=== PATIENT | female | born 1940 | race Caucasian/White ===

== ENCOUNTER 2017-09-04 11:49 | Day surgery (SDC) | payer OTHER, BC ==
[2017-08-27 14:13] VITALS: BMI 40.0
--- NOTE | 2017-08-27 14:38 | PAT Medication Instructions ---
Service Date Aug 27, 2017. Current Home Medication List Aspirin (Aspir-81), 1 TAB PO QPM Benazepril (Lotensin), 20 MG PO QAM Clonazepam (Clonazepam), 1 MG PO HS Duloxetine Hcl (Cymbalta), 60 MG PO QAM Ferrous Sulfate (Ferrous Sulfate), 1 TAB PO QAM Fexofenadine Hcl (Jaycee), 180 MG PO QAM Furosemide (Lasix), 20 MG PO QAM Glimepiride (Glimepiride), 0.5 MG PO HS Lansoprazole (Prevacid), 30 MG PO QAM Meloxicam (Mobic), 15 MG PO QAM Metformin Hcl (Glucophage), 1,000 MG PO BID Metoprolol Succinate (Toprol Xl), 25 MG PO QPM Pancrelipase (Lipase-Protease- (Creon), Unknown Dose PO QAM Potassium (Potassium), 1 TAB PO QAM Zolpidem Tartrate (Ambien Cr), 6.25 MG PO HS [Fiber ], Unknown Dose PO BID [Vitamin C And D ], Unknown Dose PO QAM Medication Instructions For Your Scheduled Surgery - Check with surgeon and prescribing physician for instructions: Aspirin (Aspir-81), 1 TAB PO QPM Meloxicam (Mobic), 15 MG PO QAM - Hold the following medications the morning of surgery: Benazepril (Lotensin), 20 MG PO QAM Ferrous Sulfate (Ferrous Sulfate), 1 TAB PO QAM Fexofenadine Hcl (Jaycee), 180 MG PO QAM Furosemide (Lasix), 20 MG PO QAM Glimepiride (Glimepiride), 0.5 MG PO HS Metformin Hcl (Glucophage), 1,000 MG PO BID Pancrelipase (Lipase-Protease- (Creon), Unknown Dose PO QAM Potassium (Potassium), 1 TAB PO QAM [Fiber ], Unknown Dose PO BID [Vitamin C And D ], Unknown Dose PO QAM - Take the following medications the morning of surgery with a sip of water: Lansoprazole (Prevacid), 30 MG PO QAM Duloxetine Hcl (Cymbalta), 60 MG PO QAM - Take the following medications as scheduled the night before surgery: [Fiber ], Unknown Dose PO BID Zolpidem Tartrate (Ambien Cr), 6.25 MG PO HS Metoprolol Succinate (Toprol Xl), 25 MG PO QPM Metformin Hcl (Glucophage), 1,000 MG PO BID Clonazepam (Clonazepam), 1 MG PO HS If you have any questions please call us at [phone] or [phone] or [phone]
--- NOTE | 2017-08-27 15:40 | DIAGNOSTIC IMAGING REPORT ---
CHEST 2 VIEWS ROUTINE CLINICAL HISTORY: 77 years-old Female presenting with preoperative assessment chest x-ray. TECHNIQUE: PA and lateral views of the chest were obtained. COMPARISON: 04/13/2016. FINDINGS: Atherosclerosis of the aortic arch. Cardiac silhouette normal in size. Lungs and pleural spaces clear. Degenerative changes of the thoracic spine. Partially visualized posterior lumbar fusion hardware. Cholecystectomy clips noted. IMPRESSION: 1. No acute cardiopulmonary disease. Electronically signed by: Harris Gill M.D. 08/27/2017 3:39 PM Dictated Date/Time: 08/27/2017 3:33 PM
[2017-08-27 15:55] LABS: BASO % 0.4 %; BASO ABS # 0.03 K/uL (0-0.2); EOS % 3.1 %; EOS ABS # 0.21 K/uL (0-0.5); HEMATOCRIT 44.3 % (37-47); HEMOGLOBIN 14.5 g/dL (12.0-16.0); IG# 0.02 K/uL (0.00-0.02); LYMPH % 28.5 %; LYMPH ABS # 1.94 K/uL (1.2-3.4); MEAN CORPUSCULAR HEMOGLOBIN 28.5 pg (25-34); MEAN CORPUSCULAR HGB CONC 32.7 g/dl (32-36); MEAN PLATELET VOLUME 10.4 fL (7.4-10.4); MONO % 6.9 %; MONO ABS # 0.47 K/uL (0.11-0.59); NEUT % 60.8 %; NEUT ABS # 4.14 K/uL (1.4-6.5); PLATELET COUNT 231 K/uL (130-400); RED CELL DISTRIBUTION WIDTH CV 14.3 % (11.5-14.5); RED CELL DISTRIBUTION WIDTH SD 45.4 fL (36.4-46.3); WHITE BLOOD COUNT 6.81 K/uL (4.8-10.8)
[2017-08-27 16:03] LABS: CALCIUM 9.2 mg/dl (8.5-10.1); CREATININE 1.11 mg/dl (0.60-1.20); POTASSIUM 4.6 mmol/L (3.5-5.1)
[2017-08-27 16:06] LABS: INR 0.9 (0.9-1.1); PTT PATIENT 25.5 SECONDS (21.0-31.0)
[2017-08-28 05:45] LABS: HEMOGLOBIN A1C 6.2 % (4.5-5.6)
[~2017-09-04] VITALS: Ht 160 cm; Wt 102.6 kg
--- NOTE | 2017-09-04 07:08 | History and Physical ---
History & Physical Date Sep 04, 2017. Chief Complaint Patient presents with bilateral thumb CMC DJD for left thumb CMC injection right thumb CMC interposition arthroplasty History of Present Illness The patient is a 77 year old female with complaints of complaints of bilateral thumb CMC joint pain for left thumb CMC injection right thumb CMC her physician arthroplasty Past Medical/Surgical History Medical Problems: (1) Coronary artery disease (2) Depression (3) Diabetes mellitus type 2 in obese (4) Dyslipidemia (5) GERD (gastroesophageal reflux disease) (6) HTN (hypertension) (7) Lumbar stenosis with neurogenic claudication Surgical Problems: (1) History of back surgery Additional History Hepatic Disease: No Endocrine Disorder: Yes Kidney Disease: No Hypertension: Yes Heart Disease: Yes Bleeding Tendencies: No Infectious Diseases: No Allergies Coded Allergies: Oxycodone (Verified Allergy, Unknown, ITCHINESS, 08/27/17) Hydromorphone (Verified Adverse Reaction, Severe, hallucinations, 08/27/17) Codeine (Verified Adverse Reaction, Intermediate, RASH, 08/27/17) ITCHING only occurs with tylenol with codeine Statins (Verified Adverse Reaction, Intermediate, myalgias, 08/27/17) Home Medications Scheduled Aspirin (Aspir-81), 1 TAB PO QPM Benazepril (Lotensin), 20 MG PO QAM Clonazepam (Clonazepam), 1 MG PO HS Duloxetine Hcl (Cymbalta), 60 MG PO QAM Ferrous Sulfate (Ferrous Sulfate), 1 TAB PO QAM Fexofenadine Hcl (Jaycee), 180 MG PO QAM Furosemide (Lasix), 20 MG PO QAM Glimepiride (Glimepiride), 0.5 MG PO HS Lansoprazole (Prevacid), 30 MG PO QAM Meloxicam (Mobic), 15 MG PO QAM Metformin Hcl (Glucophage), 1,000 MG PO BID Metoprolol Succinate (Toprol Xl), 25 MG PO QPM Pancrelipase (Lipase-Protease- (Creon), Unknown Dose PO QAM Potassium (Potassium), 1 TAB PO QAM Zolpidem Tartrate (Ambien Cr), 6.25 MG PO HS [Fiber ], Unknown Dose PO BID [Vitamin C And D ], Unknown Dose PO QAM Physical Examination Skin: warm/dry, no rash Eyes: normal inspection, EOMI, sclerae normal ENT: normal ENT inspection, pharynx normal Head: normocephalic, atraumatic Neck: supple, no adenopathy, trachea midline Respiratory/Chest: lungs clear, normal breath sounds, no respiratory distress Cardiovascular: regular rate, rhythm, no edema, no murmur Abdomen / GI: normal bowel sounds, non tender Back: normal inspection Extremities: + pertinent finding (bilateral thumb cmc djd) Diagnosis Patient presents with bilateral thumb CMC DJD presents for left thumb injection at CMC joint and for right thumb CMC interposition arthroplasty Plan of Treatment Patient presents with bilateral thumb CMC arthritis she's failed times a conservative management including physical therapy anti-inflammatories and splinting activity modification presents for left thumb CMC injection right thumb CMC her position arthroplasty
[~2017-09-04 11:49] MED LIST: ASPI-232 PO; BENA20TA14 PO; DULO60CA44 PO; FERR325T5 PO; FEXO1TAB46 PO; FIBER PO; FURO-85 PO; GLIM1TAB2 PO; KLN1X PO; LACTATED RINGER'S 1000ML 1,000 ML IV SCH; LANS30CA63 PO; MELO7.5T5 PO; METF1000 PO; METO-478 PO; PANC1CAP PO; POTA99TA PO; VITAMIN C AND D PO; ZOLP6.252 PO
[2017-09-04] MEDS ORDERED: MIDAZOLAM HCL 1 MG/ML 2ML VIAL ONE (12:03)
[2017-09-04] MEDS ORDERED: PROPOFOL IV EMULSION 10 MG/ML 20 ML VIAL IV ONE (12:03)
[2017-09-04] MEDS ORDERED: LIDOCAINE HCL 2% 2 ML VIAL (20MG/ML) ONE (12:03)
[2017-09-04] MEDS ORDERED: FENTANYL CITRATE INJ 50 MCG/1 ML 2 ML VIAL ONE (12:04)
--- NOTE | 2017-09-04 12:04 | History & Physical Bridge Note ---
H&P Re-Evaluation Bridge Note: I have examined the patient, reviewed the History & Physical and in the interval since the performance of the History & Physical I have noted the following changes of clinical significance: No changes noted
[2017-09-04 12:12] VITALS: BP 158/97; PULSE 76; TEMP 36.8; O2SAT 96; Ht 160 cm; Wt 102.6 kg
[2017-09-04] MEDS ORDERED: FENTANYL CITRATE INJ 50 MCG/1 ML 2 ML VIAL IV PRN (12:15)
[2017-09-04] MEDS ORDERED: ATROPINE SULFATE 0.1 MG/ML 5ML SYR IV PRN (12:15)
[2017-09-04] MEDS ORDERED: ONDANSETRON INJ 2 MG/ML 2 ML VIAL IV PRN (12:15)
[2017-09-04] MEDS ORDERED: EpHEDrine SULFATE INJ 50 MG/ML AMP IV PRN (12:15)
[2017-09-04] MEDS ORDERED: NURSING VERBAL MED ORDER ONE (12:30)
[2017-09-04] MEDS ORDERED: CEFAZOLIN SOD 2000MG/15 ML IV PUSH IV ONE ×2 (12:30→13:00)
[2017-09-04] MEDS ORDERED: BUPIVACAINE 0.5 % 5 MG/1 ML MPF 30ML VIAL ONE (12:48)
[2017-09-04] MEDS ORDERED: METHYLPREDNISOLONE ACETATE 80 MG/ML VIAL ONE (12:48)
[2017-09-04] MEDS ORDERED: ROPIVACAINE 0.5% 5 MG/ML 30 ML VIAL ONE (12:50)
[2017-09-04] MEDS ORDERED: ONDANSETRON INJ 2 MG/ML 2 ML VIAL ONE (13:26)
[2017-09-04] MEDS ORDERED: DEXAMETHASONE SOD INJ 4 MG/ML VIAL ONE (13:26)
[2017-09-04] MEDS ORDERED: HYDR-5688 PO (14:41)
--- NOTE | 2017-09-04 14:45 | Discharge Instructions ---
Discharge Instructions Date of Service Sep 04, 2017. Visit Reason for Visit: Bilateral Thumb Carpometacarpal Osteoarthritis Discharge Discharge Diagnosis / Problem: Bilateral Thumb Carpometacarpal Osteoarthritis Discharge Goals Goal(s): Decrease discomfort, Improve function, Increase independence Activity Recommendations Activity Limitations: per Instructions/Follow-up section Weightbearing Status: Right weightbearing (on right hand and wrist) Anesthesia . Post Anesthesia Instructions: If you have had General Anesthesia or IV Sedation: * Do not drive today. * Resume driving when surgeon permits. * Do not make important decisions or sign legal documents today. * Call surgeon for: 1. Temperature elevations greater than 101 degrees F. 2. Uncontrollable pain. 3. Excessive bleeding. 4. Persistent nausea and vomiting. 5. Medication intolerance (nausea, vomiting or rash). * For nausea and vomiting use only clear liquids such as: tea, soda, bouillon until nausea subsides, then gradually increase diet as tolerated. * If you have any concerns or questions, call your surgeon's office. If physician is unavailable and it is an emergency, call 911 or go to the nearest emergency room. . Instructions / Follow-Up Instructions / Follow-Up ACTIVITY RECOMMENDATIONS: * No weight on the right hand and wrist. SPECIAL CARE INSTRUCTIONS: * Your bandage should be left in place until seen in the office. * Some drainage onto the dressing may occur. This is normal. * If the bandage feels excessively tight, you may loosen the elastic bandage. Then call the physician's office for further instructions. * If possible, keep your hand elevated above the level of your heart for the first 2 post operative days. You may use a sling if necessary. * You should move your fingers regularly (50-100 motions per hour) unless otherwise instructed. SPECIAL PRECAUTIONS: * If you notice increased drainage, fever over 101 degrees F. or severe, unremitting pain, call your physician/office at . * You may have been prescribed pain medication. If you experience nausea and/or skin rash, discontinue this medication and contact our office for an alternative medication. FOLLOW UP VISIT: If appointment is not already scheduled: Please call [facility] to make a follow-up appointment 10 - 14 days after your surgery at . Diet Recommendations Recommended Home Diet: resume previous diet Procedures Procedures Performed: Left Thumb Carpometacarpal Joint Injection; Right Thumb Carpometacarpal Joint Arthroplasty Pending Studies Studies pending at discharge: no Medical Emergencies . Who to Call and When: Medical Emergencies: If at any time you feel your situation is an emergency, please call 911 immediately. . Non-Emergent Contact Non-Emergency issues call your: Surgeon Call Non-Emergent contact if: temperature is above 101.5, your pain is not controlled, your pain is worsening, wound has increased drainage, wound has increased redness . . "Provider Documentation" section prepared by Apollo Ashley. . [place] Drug Monitoring Program Search Results: patient reviewed within database, no issues identified
--- NOTE | 2017-09-04 14:50 | [facility] Post Operative Brief Note ---
Immediate Operative Summary Operative Date Sep 04, 2017. Pre-Operative Diagnosis bilateral thumb carpometarpal osteoarthritis Post-Operative Diagnosis bilateral thumb carpometarpal osteoarthritis Procedure(s) Performed Left Thumb Carpometacarpal Joint Injection; Right Thumb Carpometacarpal Joint Arthroplasty Surgeon Dr. Brayan Zaidi Dog Groomer Surgeon(s) Apollo Ma Estimated Blood Loss 5cc Findings Consistent with Post-Op Diagnosis Specimens none per surgeon Drains None Anesthesia Type General Complication(s) none Disposition Disposition: Recovery Room / PACU
--- NOTE | 2017-09-04 14:53 | [facility] Operative Report ---
Operative Report Operative Date Sep 04, 2017. Pre-Operative Diagnosis bilateral thumb carpometarpal osteoarthritis Post-Operative Diagnosis bilateral thumb carpometarpal osteoarthritis Procedure(s) Performed Left Thumb Carpometacarpal Joint Injection; Right Thumb Carpometacarpal Joint Arthroplasty Surgeon Dr. Brayan Zaidi Head Filter Tank Tender Helper Surgeon(s) Apollo Ma Estimated Blood Loss 5cc Findings patient presents with bilateral CMC joint DJD left CMC thumb for injection Right thumb CMC position arthroplasty utilizing flexor carpi radialis tendon Specimens none per surgeon Drains None Anesthesia Type General Complication(s) none Disposition Recovery Room / PACU Indications Patient presents after failing attempts at conservative management including injections bracing anti-inflammatories relative rest activity modification Description of Procedure After initiation of general anesthesia the left thumb CMC was prepped and was injected with 80 mg Depo-Medrol 2 mL 1% plain lidocaine Band-Aid was placed socially the right upper extremity was prepped and draped in usual fashion for surgery this type utilizing a triradiate type incision centered over the trapezium of the thumb metacarpal secondary to subcutaneous tissue was percent to protect to visual radial nerve at all times as well as other normal structures dissection carried out of the capsule of the capsule was opened over the trapezium base of the thumb metacarpal was dissected sharply off of the underlying bone and was reflected for later repair trapezium was cut the 4 quadrants special attention paid to protect the flexor carpal radialis tendon deep aspect of the wound the trapezium was excised the volar aspect of the forearm was then identified and was to 2-1.5 severe incisions were made to harvest the flexor carpal radialis tendon into the base of the triradiate incision over the thumb metacarpal thorough irrigation debridement lavage was performed subsequently the base of the thumb metacarpal was drilled with an 8 mm drill bit the tendon having been prepared and socially passed through the suture to the deep portion of the wound utilizing 4-0 Tycron suture a 4-0 FiberWire was also used to reinforce repair of the tendon back to itself socially 80.62 K wire was placed from the base of the metacarpal into the base of the second metacarpal provides stability to the repair and cubital tension on the position was noted to be excellent alignment socially after thorough irrigation debridement lavage the capsule repaired utilizing 4-0 FiberWire in interrupted fashion subcutaneous was once again irrigated and skin was closed with 4-0 nylon a sterile compressive dressing was placed as well as a thumb spica splint patient was taken recovery in stable condition Apollo PITTMAN was necessary for prepping draping retraction wound closure of the deep fascia subcutaneous and skin was necessary for the case I attest to the content of the Intraoperative Record and any orders documented therein. Any exceptions are noted below.
--- NOTE | 2017-09-04 15:31 | Anesthesiology Progress Note ---
Anesthesia Post Op Note Date & Time Sep 04, 2017 at 15:30 Vital Signs Pain Intensity: 0 Vital Signs Past 12 Hours Date Time Temp Pulse Resp B/P (MAP) Pulse Ox O2 Delivery O2 Flow Rate FiO2 09/04/17 15:25 87 18 165/67 95 Room Air 09/04/17 15:15 89 15 163/76 97 Oxymask 10 09/04/17 15:05 90 28 148/74 97 Oxymask 09/04/17 14:57 36.5 106 20 166/89 97 Oxymask 15 09/04/17 12:12 36.8 76 20 158/97 (117) 96 Room Air Notes Mental Status: alert / awake / arousable, participated in evaluation Pt Amnestic to Procedure: Yes Nausea / Vomiting: adequately controlled Pain: adequately controlled Airway Patency, RR, SpO2: stable & adequate BP & HR: stable & adequate Hydration State: stable & adequate Anesthetic Complications: no major complications apparent
[2017-09-04 15:42] VITALS: BP 156/71; PULSE 70; TEMP 36.7; O2SAT 96
[2017-09-04 16:12] VITALS: BP 137/71; PULSE 70; TEMP 36.8; O2SAT 98
== END 2017-09-04 16:32 | disposition home or self-care (01) ==
LOC: C.ACU 11:49
PROVIDERS: ATTEND Orthopaedic Surgery
DX: M18.0 Bilateral primary osteoarthritis of first carpometacarpal joints (principal); F32.9 Major depressive disorder, single episode, unspecified; F41.9 Anxiety disorder, unspecified; I10 Essential (primary) hypertension; E11.9 Type 2 diabetes mellitus without complications; K21.9 Gastro-esophageal reflux disease without esophagitis; E78.5 Hyperlipidemia, unspecified; Z90.710 Acquired absence of both cervix and uterus; Z90.49 Acquired absence of other specified parts of digestive tract; Z98.890 Other specified postprocedural states; I25.10 Atherosclerotic heart disease of native coronary artery without angina pectoris; Z68.41 Body mass index [BMI] 40.0-44.9, adult; E66.01 Morbid (severe) obesity due to excess calories; Z79.899 Other long term (current) drug therapy; Z79.82 Long term (current) use of aspirin; Z83.3 Family history of diabetes mellitus; Z82.49 Family history of ischemic heart disease and other diseases of the circulatory system; Z80.3 Family history of malignant neoplasm of breast; Z82.0 Family history of epilepsy and other diseases of the nervous system; Z82.3 Family history of stroke

== ENCOUNTER 2018-09-04 10:06 | Inpatient (IN) ==
--- NOTE | 2018-08-21 10:45 | PAT Medication Instructions ---
Medication Instructions Date of Service August 21, 2018 Home Medications aspirin [Aspir-81] 81 mg PO QPM benazepril 20 mg PO QAM calcium polycarbophil [Fiber-Tabs] 2 tab PO BID clonazepam 1 mg PO QPM duloxetine 60 mg PO QAM fexofenadine 180 mg PO HS glimepiride 0.5 mg PO HS lansoprazole 30 mg PO QAM metformin 500 mg PO QAM metoprolol succinate 25 mg PO QPM DO NOT take the morning of surgery benazepril 20 mg PO QAM metformin 500 mg PO QAM calcium polycarbophil [Fiber-Tabs] 2 tab PO BID Take morning of surgery With a small sip of water, OTHERWISE NOTHING TO EAT OR DRINK AFTER MIDNIGHT: duloxetine 60 mg PO QAM lansoprazole 30 mg PO QAM Take evening before surgery aspirin [Aspir-81] 81 mg PO QPM calcium polycarbophil [Fiber-Tabs] 2 tab PO BID clonazepam 1 mg PO QPM fexofenadine 180 mg PO HS glimepiride 0.5 mg PO HS metoprolol succinate 25 mg PO QPM Other Notes If you have any questions please call us at [phone] or [phone] or [phone] or [phone]
--- NOTE | 2018-08-21 11:19 | Anesthesiology Consultation ---
Date of Service August 21, 2018 Assessment & Plan (1) Encounter for pre-operative examination: Plan: Cardiology clearance 08/07/2018: "The above referred patient is considered cleared for planned surgery and is considered low cardiac risk." CHECK BSG AM DOS Chart Review Chart Review: Acceptable Risk for Surgery and Patient seen in Pre Admission Testing Teaching & Discussion Instructed NPO after midnight before surgery, except medications with 15 cc of water. Medication instructions provided according to the PAT guidelines. History Surgery Operation Date: 09/04/18 12:25 Proposed Procedures p L2-L4 Removal of Hardware, L1-L2 Posterior Lumbar Decompression and Fusion, Possible L1-L4 Re-Instrumentation, Possible L1-L2 Interbody Cage - Orlando Jacobo, Height/Weight Height: 5 ft 3 in Weight: 97.4 kg Allergies Allergy/AdvReac Type Severity Reaction Status Date / Time oxycodone Allergy Unknown ITCHINESS Verified 08/15/18 10:43 hydromorphone AdvReac Severe hallucinati Verified 08/15/18 10:43 ons codeine AdvReac Intermediate RASH Verified 08/15/18 10:43 Agxyqqn-Kbs-Ass Reductase AdvReac Intermediate myalgias Verified 08/15/18 10:43 Inhibitor Medications Home Medications Medication Instructions Recorded Confirmed Last Taken aspirin [Aspir-81] 81 mg PO QPM 08/15/18 08/15/18 Unknown benazepril 20 mg PO QAM 08/15/18 08/15/18 Unknown calcium polycarbophil [Fiber-Tabs] 2 tab PO BID 08/15/18 08/15/18 Unknown clonazepam 1 mg PO QPM 08/15/18 08/15/18 Unknown duloxetine 60 mg PO QAM 08/15/18 08/15/18 Unknown fexofenadine 180 mg PO 08/15/18 08/15/18 Unknown glimepiride 0.5 mg PO HS 08/15/18 08/15/18 Unknown lansoprazole 30 mg PO QAM 08/15/18 08/15/18 Unknown metformin 500 mg PO QAM 08/15/18 08/15/18 Unknown metoprolol succinate 25 mg PO QPM 08/15/18 08/15/18 Unknown Past Medical History Medical History Anemia HX Anxiety Chronic back pain Depression Diabetes mellitus, type 2 Diverticular disease GERD (gastroesophageal reflux disease) Hiatal hernia Hyperlipidemia UNABLE TO TOLERATE STATINS-DIET MANAGED Hypertension Systolic heart failure EF 40% on echo 08/02/18 Past Family History Family History Daughter Family history of diabetes mellitus Past Surgical History Surgical History Fusion of spine LUMBAR H/O hand surgery RIGHT H/O laparoscopy OVARIES H/O shoulder surgery RIGHT History of bilateral tubal ligation History of cardiac cath X 3-NO STENTS NEEDED-LAST ONE 10 YRS AGO History of cholecystectomy History of hysterectomy TOTAL WITH APPENDECTOMY History of tonsillectomy Past Anesthesia History No Hx of Anesthesia Complications and No Family Hx of Anesthesia Complications MAC 3, ETT 7.0 [facility] CARPO-METACARPAL SURGERY 08/2017. NO ISSUES PER RECORD. History of PONV No Motion Sickness Screening History of Motion Sickness: No Social History Smoking Status: Never smoker Do You Dip or Chew Tobacco: No Hx Alcohol Use: Yes (RARELY) Alcohol type: wine alcohol intake frequency: other Hx Substance Use: No Exercise / Class Metabolic Activity III < 4 Walking/Shop/Light housework (no SOB or CP with ambulation. Does not do stairs.) Review of Systems Pt denies any recent chest pain, shortness of breath, palpitations, cough, fever or URI. Physical Exam Vital Signs BP: 131/78 P: 60bpm SPO2: 98% RA T: 97.5 F R: 16 ENMT Mouth: + dentures and + edentulous Thyromental Distance: > or= 3.5 Finger Breadths (3.5) Mallampati Class: I Neck normal visual inspection; neck extension not limited Respiratory normal respiratory effort Auscultation: lungs clear to auscultation bilaterally Cardiovascular Rate/Rhythm: regular rate and regular rhythm Heart Sounds: no murmur Vessels: no carotid bruit Extremities: no edema Testing Electrocardiogram Date: 04/02/18 Findings: + NSR @ (72) and + LBBB Chest X-Ray Date: 08/21/18 Findings: + NAD Echocardiogram Date: 08/02/18 EF: 40% Left ventricular size is normal with concentric LVH. EF of 40%, consistent with moderate left ventricular systolic dysfunction. Hypokinesis within the septal, anterior, inferior, and apical wall segments. The lateral wall segments show normal contractility. Normal left atrial size. Normal right atrial size and normal right ventricular size with normal right ventricular function. Grade 1 diastolic dysfunction. Normal LA pressure. Mild AR. The PA systolic pressure was unable to be estimated. The pericardium and aorta appear normal. Normal respiratory variation of the IVC. False tendon within the LV. Laboratory Results 08/21/18 11:40 08/21/18 11:40 Blood Type O Positive 08/21/18 11:40 Antibody Screen NEGATIVE 08/21/18 11:40 PT 9.6 Seconds (9.0-12.0) 08/21/18 11:40 INR 0.9 (0.9-1.1) 08/21/18 11:40 APTT 26.3 Seconds (21.0-31.0) 08/21/18 11:40 Hemoglobin A1c 6.2 % (4.5-5.6) H 08/21/18 11:40 Urine Color Yellow 08/21/18 Unknown Urine Appearance Clear (Clear) 08/21/18 Unknown Urine pH 7.5 (4.5-7.5) 08/21/18 Unknown Ur Specific [place] 1.018 (1.000-1.030) 08/21/18 Unknown Urine Protein Negative (Negative) 08/21/18 Unknown Urine Glucose (UA) Negative (Negative) 08/21/18 Unknown Urine Ketones Negative (Negative) 08/21/18 Unknown Urine Nitrite Negative (Negative) 08/21/18 Unknown Ur Leukocyte Esterase 3+ (Negative) H 08/21/18 Unknown Urine WBC (Auto) 10-30 /hpf (0-5) H 08/21/18 Unknown Urine RBC (Auto) 0-4 /hpf (0-4) 08/21/18 Unknown U Hyaline Cast (Auto) 0 /lpf (0-5) 08/21/18 Unknown U Epithel Cells (Auto) >30 /lpf (0-5) H 08/21/18 Unknown Urine Bacteria (Auto) Negative (Negative) 08/21/18 Unknown 08/21/18 Unknown Urine Culture - Preliminary Urine,Clean Catch Pin-point growth present, reincubating.
--- NOTE | 2018-08-21 12:43 | XRay Report ---
TWO VIEW CHEST CLINICAL HISTORY: Preoperative examination. FINDINGS: PA and lateral chest radiographs are compared to study dated 08/27/2017. The cardiomediastin al silhouette is unremarkable. There is mild bibasilar scarring/atelectasis. The lungs and pleural s paces are otherwise clear. There is no pneumothorax. The skeletal structures are osteopenic. The bony thorax appears intact. Degenerative change is noted in the thoracic spine. Fusion hardware is partia lly imaged in the upper lumbar spine. IMPRESSION: No active disease in the chest. Electronically signed by: Gabo Laguerre M.D. 08/21/2018 12:41 PM
[2018-08-21 13:19] LABS: Basophils # (auto) 0.03 K/uL (0-0.2); Basophils % (auto) 0.6 %; Eosinophils # (auto) 0.25 K/uL (0-0.5); Eosinophils % (auto) 4.7 %; Hematocrit (blood only) 41.2 % (37-47); Hemoglobin 12.8 g/dL (12.0-16.0); Immature Granulocytes # (auto) 0.01 K/uL (0.00-0.02); Immature Granulocytes % (auto) 0.2 %; Lymphocytes # (auto) 1.71 K/uL (1.2-3.4); Lymphocytes % (auto) 32.2 %; Mean Corpuscular Hgb Conc 31.1 g/dL (32-36); Mean Corpuscular Volume 89.8 fL (80-100); Mean Platelet Volume 11.2 fL (7.4-10.4); Monocytes # (auto) 0.45 K/uL (0.11-0.59); Monocytes % (auto) 8.5 %; Neutrophils # (auto) 2.86 K/uL (1.4-6.5); Neutrophils % (auto) 53.8 %; Platelet Count 219 K/uL (130-400); RDW Coefficient of Variation 13.9 % (11.5-14.5); RDW Standard Deviation 46.1 fL (36.4-46.3); Red Blood Count 4.59 M/uL (4.2-5.4); White Blood Count 5.31 K/uL (4.8-10.8)
[2018-08-21 13:26] LABS: Appearance Urine Clear (Clear); Bacteria Urine Automated Negative (Negative); Bilirubin Urine Negative (Negative); Cast Urine Automated 0 /lpf (0-5); Color Urine Yellow; Epithelial Cell Urine Auto >30 /lpf (0-5); Glucose Urine UA Negative (Negative); Ketones Urine Negative (Negative); Leukocyte Esterase Urine 3+ (Negative); Nitrite Urine Negative (Negative); Protein Urine Negative (Negative); Specific Gravity Urine 1.018 (1.000-1.030); Urobilinogen Urine Negative (Negative); pH Urine 7.5 (4.5-7.5)
[2018-08-21 13:42] LABS: BUN Creatinine Ratio 17.2 (10-20); Calcium 8.2 mg/dl (8.5-10.1); Creatinine Clr Calc Pharmacy 41.6 ml/min; Est GFR (Non-African American) 40.6; Potassium 4.4 mmol/L (3.5-5.1)
[2018-08-21 13:43] LABS: INR 0.9 (0.9-1.1); Partial Thromboplastin Time 26.3 Seconds (21.0-31.0); Prothrombin Time 9.6 Seconds (9.0-12.0)
[2018-08-21 14:25] LABS: Estimated Average Glucose 131 mg/dl
[~2018-09-04 10:06] MED LIST changes: +ACETAMINOPHEN 500 MG TAB PO SCH; -ASPI-232 PO; -BENA20TA14 PO; +CEFAZOLIN 2000MG 2,000 MG/15 ML SYR IV SCH; +CeleBREX 200 MG CAP PO SCH; -DULO60CA44 PO; -FERR325T5 PO; -FEXO1TAB46 PO; -FIBER PO; -FURO-85 PO; +GABAPENTIN 300 MG PO SCH; -GLIM1TAB2 PO; -KLN1X PO; -LACTATED RINGER'S 1000ML 1,000 ML IV SCH; -LANS30CA63 PO; +LR 15ML/HR IV SCH; -MELO7.5T5 PO; -METF1000 PO; -METO-478 PO; -PANC1CAP PO; -POTA99TA PO; -VITAMIN C AND D PO; -ZOLP6.252 PO
[2018-09-04] MEDS ORDERED: fentaNYL citrate 100 MCG/2 ML VIAL ONE ×6 (10:12→14:46)
[2018-09-04] MEDS ORDERED: MIDAZOLAM HCL 1 MG/ML 2ML VIAL ONE (10:12)
[2018-09-04] MEDS ORDERED: HYDROmorphone INJ 2 MG/ML SYR/VIAL ONE ×2 (10:12→14:07)
[2018-09-04] MEDS ORDERED: ROCURONIUM BROMIDE 10 MG/ML 5 ML VIAL ONE (10:13)
[2018-09-04] MEDS ORDERED: ONDANSETRON INJ 2 MG/ML 2 ML VIAL ONE ×2 (10:13→14:27)
[2018-09-04] MEDS ORDERED: DEXAMETHASONE SOD INJ 4 MG/ML VIAL ONE (10:13)
[2018-09-04] MEDS ORDERED: NEOSTIGMINE METHYLSULFATE 1 MG/ML 10ML VIAL ONE (10:13)
[2018-09-04] MEDS ORDERED: PROPOFOL IV EMULSION 10 MG/ML 20 ML VIAL IV ONE (10:13)
[2018-09-04] MEDS ORDERED: GLYCOPYRROLATE 0.2 MG/ML VIAL ONE (10:13)
[2018-09-04] MEDS ORDERED: LIDOCAINE HCL 2% 2 ML VIAL/AMP(20MG/ML) INFIL ONE (10:13)
--- NOTE | 2018-09-04 12:27 | History & Physical Bridge Note ---
Date of Service September 04, 2018 History & Physical Bridge Note I have examined the patient, reviewed the History & Physical and in the interval since the performance of the History & Physical I have noted the following changes of clinical significance: no changes noted
--- NOTE | 2018-09-04 12:29 | History & Physical Report ---
Date of Service September 04, 2018 Assessment & Plan (1) Lumbar stenosis with neurogenic claudication: Removal of hardware L2-L4 posterior lumbar decompression fusion L1-L2 possible re-instrumentation L1-L4 possible interbody cage at L1 to Present on Admission?: Yes History of Present Illness Chief Complaint: Back and leg pain Primary Care Provider: Ty Buck This is a 78-year-old female well-known to me that presents with chronic persistent back and leg pain. After failing extensive course of nonoperative care she is here for surgical intervention. Allergies Allergy/AdvReac Type Severity Reaction Status Date / Time oxycodone Allergy Unknown ITCHINESS Verified 09/04/18 10:48 hydromorphone AdvReac Severe hallucinati Verified 09/04/18 10:48 ons codeine AdvReac Intermediate RASH Verified 09/04/18 10:48 Vcfjxcd-Wuq-Laz Reductase AdvReac Intermediate myalgias Verified 09/04/18 10:48 Inhibitor Home Medications Home Medications Medication Instructions Recorded Confirmed Type aspirin [Aspir-81] 81 mg PO QPM 08/15/18 09/04/18 History benazepril 20 mg PO QAM 08/15/18 09/04/18 History calcium polycarbophil [Fiber-Tabs] 2 tab PO BID 08/15/18 09/04/18 History clonazepam 1 mg PO QPM 08/15/18 09/04/18 History duloxetine 60 mg PO QAM 08/15/18 09/04/18 History fexofenadine 180 mg PO HS 08/15/18 09/04/18 History glimepiride 0.5 mg PO HS 08/15/18 09/04/18 History lansoprazole 30 mg PO QAM 08/15/18 09/04/18 History metformin 500 mg PO QAM 08/15/18 09/04/18 History metoprolol succinate 25 mg PO QPM 08/15/18 09/04/18 History Lexapro 30 mg PO QAM 09/04/18 09/04/18 History Past Med/Surg History Medical History Anemia HX Anxiety Chronic back pain Depression Diabetes mellitus, type 2 Diverticular disease GERD (gastroesophageal reflux disease) Hiatal hernia Hyperlipidemia UNABLE TO TOLERATE STATINS-DIET MANAGED Hypertension Systolic heart failure EF 40% on echo 08/02/18 Surgical History Fusion of spine LUMBAR H/O hand surgery RIGHT H/O laparoscopy OVARIES H/O shoulder surgery RIGHT History of bilateral tubal ligation History of cardiac cath X 3-NO STENTS NEEDED-LAST ONE 10 YRS AGO History of cholecystectomy History of hysterectomy TOTAL WITH APPENDECTOMY History of tonsillectomy Family History Daughter Family history of diabetes mellitus Social History Current Living Situation: Spouse Other Information That Helps Us Care for You: No Feels Safe at Home: Yes Safety Concerns: Feels Safe At This Time Smoking Status: Never smoker Do You Dip or Chew Tobacco: No Hx Alcohol Use: Yes (RARELY) Alcohol type: wine Alcohol Intake Frequency: other Hx Substance Use: No Beliefs That Will Affect Care: None Preferred Language: Citizen Of [place] Communication Ability: Effective 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: No Physical Exam 2 Vital Signs (Past 24 Hours): Last Vital Signs Temp 36.8 C 09/04/18 11:14 Pulse 61 09/04/18 11:14 Resp 20 09/04/18 11:14 Pulse Ox 96 09/04/18 11:14 Results & Data Medications Administered Acetaminophen (Tylenol) 1,000 mg PO PREOP ALONSO Stop: 09/04/18 18:00 Last Admin: 09/04/18 10:56 Dose: 1,000 mg Celecoxib (Celebrex) 200 mg PO PREOP ALONSO Stop: 09/04/18 18:00 Last Admin: 09/04/18 10:55 Dose: 200 mg Gabapentin (Neurontin) 300 mg PO PREOP ALONSO Stop: 09/04/18 18:00 Last Admin: 09/04/18 10:56 Dose: 300 mg Lactated Ringer's (Lr) 1,000 mls @ 15 mls/hr IV .Q24H ALONSO Stop: 09/05/18 05:59 Last Admin: 09/04/18 10:56 Dose: 15 mls/hr
[2018-09-04] MEDS ORDERED: ONDANSETRON INJ 2 MG/ML 2 ML VIAL IV PRN ×2 (12:32→16:19)
[2018-09-04] MEDS ORDERED: fentaNYL citrate 100 MCG/2 ML VIAL IV PRN (12:32)
[2018-09-04] MEDS ORDERED: ePHEDrine sulfate 50 MG/ML AMP IV PRN (12:32)
[2018-09-04] MEDS ORDERED: ATROPINE SULFATE 0.1 MG/ML 10ML SYR IV PRN (12:32)
[2018-09-04] MEDS ORDERED: LARYING-O-JET KIT (LTA) ONE (12:45)
[2018-09-04] MEDS ORDERED: BACITRACIN INJ 50,000 UNIT VIAL ONE (12:46)
[2018-09-04] MEDS ORDERED: BUPIVACAINE/EPINEPHRINE 0.5% MPF 1:200,000 30 ML VIAL ONE (12:46)
[2018-09-04] MEDS ORDERED: ALBUTEROL HFA INHALER 8.5 GM ONE ×2 (13:58→14:27)
[2018-09-04] MEDS ORDERED: FLOSEAL HEMOSTATIC MATRIX 10ML TOP ONE (13:59)
[2018-09-04] MEDS ORDERED: KETOROLAC 30 MG/ML VIAL ONE (14:27)
--- NOTE | 2018-09-04 14:44 | Operative Report ---
Post Operative Report Pre & Post Diagnosis Operation Date: 09/04/18 11:55 Pre-Op Diagnosis: Neuroforaminal Stenosis of Lumbar Spine Post-Op Diagnosis: Neuroforaminal Stenosis of Lumbar Spine Procedure Operation Date: 09/04/18 11:55 Actual Procedures #1 removal of posterior segmental instrumentation L2-3 L3-4 L4-5 per #2 expiration of fusion L2-3 L3 445 per #3 lumbar decompression medial facetectomies foraminotomies L1-2. #4 posterior spinal fusion 1 2. #5 placement posterior his mentation L1-2. #6 interbody fusion L1-2. #7 placement of peek cage 8 x 26 mm L1-2. #8 placement of local autograft in the posterior gutters. #9 placement Feese: Sponge bone mass graft in the posterior gutters and ostial amp and interbody space. Surgeon Orlando Jacobo DO Air And Hydronic Balancing Technician Sunita Verduzco Estimated Blood Loss 100 Findings Consistent with Post-Op Diagnosis Specimens None Description of Procedure Patient was met with preoperatively case discussed all questions addressed. After informed consent obtained patient was taken to the operative suite underwent intubation and placed in a prone position the Jaime table on top of the Bill frame. All bony prominences well-padded eyes inspected to ensure no external pressure placed upon up at this point the lumbar spine was prepped and draped in normal sterile fashion. Sharp dissection with the assistance of Bovie cautery was performed down to and exposing the lamina and transverse processes of L1 and instrumentation at L2-L3-L4 bilaterally. Then proceeded to move the hardware bilaterally explore the fusion mass noting it to be intact. Then performed a complete laminectomy of L1 including bilateral medial facetectomies and foraminotomies addressing severe stenosis. Pedicle screws were then placed in L1 and L2 bilaterally with assistance of fluoroscopy the purposes cinthya placed. By way of a transforaminal approach on the right complete discectomy was performed and endplates curetted to subcortical bleeding bone and a 8 x 26 mm peek cage filled with osteo-amp bone graft tapped in position. The rods were then locked into final position bilaterally. The transverse processes of L1 and L2 burred to subcortical bleeding bone. Infuse collagen sponge mass graft local autograft placed in the posterior lateral gutters. 15 round MIRYAM drain inserted. Incision was then closed with 1 Vicryl in the fascia 2 -0 Vicryl subcutaneously for Monocryl for final skin closure. Steri-Strip sterile dressings placed. Patient will continue to PACU stable disc. Please note Sunita Verduzco present throughout the entire procedure involved in patient positioning complex portions of the surgery and final skin closure. I attest to the content of the Intraoperative Record and any orders documented therein. Any exceptions are noted below.
--- NOTE | 2018-09-04 14:46 | Fluoroscopy Report ---
FL lumbar spine 2-3V CLINICAL HISTORY: 78 years-old Female presenting with L2-L4 DECOMP/FUSION POSSIBLE L1. TECHNIQUE: 2 fluoroscopic image(s) recorded as part of an intraoperative procedure. COMPARISON: 04/14/2016. FINDINGS/IMPRESSION: Posterior bilateral transpedicular screw and cinthya fixation of 2 adjacent upper lumbar levels interbody spacers at this level and the 2 more inferior levels. Laminectomy defects at multiple contiguous lev els in the lumbar spine. Please see surgical report for further details. Fluoroscopy dosage (mGy): 14.65. Fluoroscopy time: 17.5 seconds. Number or time of fluoroscopic spot images: 0. Electronically signed by: Harris Gill M.D. 09/04/2018 2:45 PM
--- NOTE | 2018-09-04 15:59 | Anesthesiology Progress Note ---
Date of Service September 04, 2018 Anesthesia Post Procedure Vital Signs Vital Signs: Temp Pulse Pulse Pulse Resp BP BP 09/04/18 15:34 36.5 C 54 L 16 138/56 L 09/04/18 15:26 55 L 17 133/53 L 09/04/18 15:25 54 L 17 09/04/18 15:20 56 L 14 134/57 L 09/04/18 15:16 54 L 15 119/58 L 09/04/18 15:15 56 L 16 09/04/18 15:11 49 L 22 103/59 L 09/04/18 15:10 50 L 52 L 16 103/59 L 09/04/18 15:06 36.2 C L 51 L 51 L 16 128/54 L 128/54 L 09/04/18 15:05 09/04/18 11:14 36.8 C 61 20 Pulse Ox 09/04/18 15:34 100 09/04/18 15:26 100 09/04/18 15:25 100 09/04/18 15:20 100 09/04/18 15:16 100 09/04/18 15:15 100 09/04/18 15:11 98 09/04/18 15:10 99 09/04/18 15:06 96 09/04/18 15:05 97 09/04/18 11:14 96 Pain Intensity Right Groin: Pain Intensity: 0 Notes Mental Status: alert / awake / arousable and participated in evaluation Patient Amnestic to Procedure: Yes Nausea / Vomiting: adequately controlled Pain: adequately controlled Airway Patency, RR, SpO2: stable & adequate BP & HR: stable & adequate Hydration State: stable & adequate Anesthetic Complications: no major complications apparent and Pt Satisfied with anesthetic care
[2018-09-04] MEDS ORDERED: ALUMINUM/MAGNESIUM SUSP 30 ML UDC PO PRN (16:19)
[2018-09-04] MEDS ORDERED: ONDANSETRON 4 MG TAB PO PRN (16:19)
[2018-09-04] MEDS ORDERED: SOD PHOSPHATE/SOD BIPHOSPHATE ENEMA 132 ML BTL PR PRN (16:19)
[2018-09-04] MEDS ORDERED: MAGNESIUM HYDROXIDE SUSP 30 ML UDC PO PRN (16:19)
[2018-09-04] MEDS ORDERED: ACETAMINOPHEN 500 MG TAB PO PRN (16:19)
[2018-09-04] MEDS ORDERED: FAMOTIDINE 20 MG TAB PO PRN (16:19)
[2018-09-04] MEDS ORDERED: BISACODYL 10 MG SUPP PR PRN (16:19)
[2018-09-04] MEDS ORDERED: LORazepam 0.5 MG TAB PO PRN (16:19)
[2018-09-04] MEDS ORDERED: METOCLOPRAMIDE HCL INJ 5 MG/ML 2 ML VIAL IV PRN (16:19)
[2018-09-04] MEDS ORDERED: LORazepam 0.5 MG/1 ML VIAL IV PRN (16:19)
[2018-09-04] MEDS ORDERED: SODIUM CHLORIDE 0.9% 1000ML 1,000 ML IV SCH (16:19)
[2018-09-04] MEDS ORDERED: ACETAMINOPHEN 1,000 MG/100 ML VIAL IV PRN (16:19)
[2018-09-04] MEDS ORDERED: PROMETHAZINE HCL 12.5 MG in SODIUM CHLORIDE 0.9% 50 ML IV PRN (16:19)
[2018-09-04] MEDS ORDERED: DO NOT ADMINISTER FLU VACCINE PRN (16:19)
[2018-09-04] MEDS ORDERED: DO NOT ADMINISTER PNEUMOCOCCAL VACCINE PRN (16:19)
[2018-09-04] MEDS ORDERED: HYDROCODONE/ACETAMOPHEN 5/325MG TAB PO PRN (16:19)
[2018-09-04] MEDS: KETOROLAC TROMETHAMINE 15 MG/ML VIAL IV SCH ×2 (17:22→23:39)
[2018-09-04] MEDS ORDERED: GLUCAGON FOR INJ 1 MG VIAL SQ PRN (20:04)
[2018-09-04] MEDS ORDERED: GLUCOSE 40% GEL 15 GM TUBE PO PRN (20:04)
[2018-09-04] MEDS ORDERED: CARBOHYDRATES FOR HYPOGLYCEMIA PO PRN (20:04)
[2018-09-04] MEDS ORDERED: DEXTROSE 50% 50 ML SYRINGE IV PRN (20:04)
[2018-09-04] MEDS ORDERED: GLUCOSE 10 TABS/TUBE PO PRN (20:04)
--- NOTE | 2018-09-04 20:12 | Consultation ---
Date of Consultation September 04, 2018 Assessment & Plan (1) Status post lumbar surgery: Post op day# 0 S/P hardware removal L2-L4, lumbar decompression fusion L1- L2 by Dr Odalis DAVISON#[phone] Currently pt doing well post op, pain controlled -pain management per ortho -wound management per ortho -PT/OT as appropriate -DVT prophylaxis per ortho -incentive spirometry -monitor H&H for acute blood loss anemia (2) Diabetes mellitus, type II: A1c: 6.2 on 08/21/18 -monitor BSGs -hold metformin, glimepiride while in hospital -Novolog, Lantus sliding scale per protocol (3) Coronary artery disease: Cardiac cath 2009: 30% LAD stenosis Stress test 2015: no ischemia -No CP or SOB -resume aspirin when able per ortho -continue metoprolol (4) Chronic systolic heart failure: Hx echo 2017: EF: 35%, trace mitral and tricuspid insufficiency Does not appear fluid overloaded at this time -limit post op NSS to 1L running at 50ml/hr (5) HTN (hypertension): Stable -hold morning benazepril and reassess fluid status and bmp -continue metoprolol (6) Depression: Hx Depression and anxiety -continue lexapro, cymbalta (7) GERD (gastroesophageal reflux disease): -continue PPI Supervising Physician Co-Signing Physician Notes Patient seen and examined postop. States of back pain is well controlled, denies any numbness or tingling. Denies any chest pain, shortness of breath, dizziness. On Exam Patient is Obese, no apparent distress, lungs are clear to auscultation, S1-S2, back- surgical site in dressing, posterior drain, No pedal edema. Hyperglycemia noted post Op. Patient had Dexamethasone during surgery. Patient last A1C is 6.2. Hold Home meds for diabetes, Continue ISS, lantus while hospitalized. Post OP surgical site management/activity/DVT Px as per Primary Team. I personally reviewed the record. Patient is interviewed and examined at bedside. Patient's care is coordinated with Amy Cantu. Please refer to the documentation above for details of patient's presentation and for discussion of other issues. History of Present Illness Reason for Consultation: Post op medical management Attending Physician: Orlando Jacobo DO History of Present Illness Pt is 78 y/o F with PMH DM II, HTN, dyslipidemia, depression, GERD, Abraham's esophagus, CAD, angina seen in consultation for post op medical management s/p lumbar hardware removal and decompression fusion surgery today by Dr Jacobo. Pt reports doing well and pain is well controlled. Reports no paresthesias to extremities. Has not urinated yet post op. Eating and drinking without difficulty. Denies N/V/D, THAYER, dizziness, CP, SOB, orthopnea, palpitations, choking, abdominal pain. Out pt scanned records reviewed: Hx echo 2016: EF: 35%, trace mitral and tricuspid insufficiency Cardiac cath 2009: 30% LAD stenosis Stress test 2015: no ischemia Allergies Allergy/AdvReac Type Severity Reaction Status Date / Time oxycodone Allergy Unknown ITCHINESS Verified 09/04/18 10:48 hydromorphone AdvReac Severe hallucinati Verified 09/04/18 10:48 ons codeine AdvReac Intermediate RASH Verified 09/04/18 10:48 Eodffzm-Gor-Ebw Reductase AdvReac Intermediate myalgias Verified 09/04/18 10:48 Inhibitor Home Medications Home Medications Medication Instructions Recorded Confirmed Type aspirin [Aspir-81] 81 mg PO QPM 08/15/18 09/04/18 History benazepril 20 mg PO QAM 08/15/18 09/04/18 History calcium polycarbophil [Fiber-Tabs] 2 tab PO BID 08/15/18 09/04/18 History clonazepam 1 mg PO QPM 08/15/18 09/04/18 History duloxetine 60 mg PO QAM 08/15/18 09/04/18 History fexofenadine 180 mg PO HS 08/15/18 09/04/18 History glimepiride 0.5 mg PO HS 08/15/18 09/04/18 History lansoprazole 30 mg PO QAM 08/15/18 09/04/18 History metformin 500 mg PO QAM 08/15/18 09/04/18 History metoprolol succinate 25 mg PO QPM 08/15/18 09/04/18 History Lexapro 30 mg PO QAM 09/04/18 09/04/18 History escitalopram oxalate [Lexapro] 20 mg PO DAILY 09/04/18 09/04/18 History Patient History Medical History Chronic systolic heart failure (Chronic) Diabetes mellitus, type II (Chronic) Hiatal hernia (Chronic) Diverticular disease (Chronic) Chronic back pain (Chronic) Systolic heart failure (Chronic) EF 40% on echo 08/02/18 History of hysterectomy (Resolved) Abraham esophagus (Chronic) HTN (hypertension) (Chronic) Dyslipidemia (Chronic) Depression (Chronic) GERD (gastroesophageal reflux disease) (Chronic) Coronary artery disease (Chronic) Lumbar stenosis with neurogenic claudication (Chronic) Anxiety (Chronic) Diabetes mellitus, type 2 (Chronic) Anemia HX Surgical History History of bilateral tubal ligation (Resolved) H/O shoulder surgery (Resolved) RIGHT H/O hand surgery (Resolved) RIGHT H/O laparoscopy (Resolved) OVARIES Hx of tonsillectomy (Resolved) History of cholecystectomy (Resolved) History of back surgery (Chronic) History of cardiac cath (Resolved) X 3-NO STENTS NEEDED-LAST ONE 10 YRS AGO Fusion of spine LUMBAR Social History Current Living Situation: Spouse Other Information That Helps Us Care for You: No Feels Safe at Home: Yes Safety Concerns: Feels Safe At This Time Smoking Status: Never smoker Do You Dip or Chew Tobacco: No Hx Alcohol Use: No (RARELY) Hx Substance Use: No Beliefs That Will Affect Care: None Preferred Language: [place] Communication Ability: Effective Computer Operations Specialist Required: No Review of Systems As per HPI, other 10 systems reviewed and negative Physical Exam 2 Vital Signs (Past 24 Hours): Last Vital Signs Temp 37.1 C 09/04/18 19:45 Pulse 87 09/04/18 19:45 Resp 16 09/04/18 19:45 BP 132/79 09/04/18 19:45 Pulse Ox 99 09/04/18 19:45 Physical Exam: General: no distress, WDWN Head: normocephalic, atraumatic Eyes: PERRL, EOM's intact, conjunctiva non-injected, anicteric ENT: normal inspection external ears, nose, mucous membranes moist Neck: supple, trachea midline, non-tender Lungs: clear, no respiratory distress, no wheezing/rhonchi/rales CV: RRR, systolic murmur, no pretibial edema Abd: normal BS, soft, non-tender Ext: no cyanosis, bilateral pedal pulls and pushes intact bilaterally, distal pulses intact, sensation to light touch intact Neuro: A&O x 3, no focal deficits noted, normal affect Skin: warm, dry
[2018-09-04] MEDS: CEFAZOLIN 2000MG 2,000 MG/15 ML SYR IV SCH (20:23)
[2018-09-04] MEDS: FEXOFENADINE HCL 180 MG TAB PO SCH (20:33)
[2018-09-04] MEDS: ASPIRIN 81 MG ECTAB PO SCH (20:33)
[2018-09-04] MEDS: clonazePAM 1 MG TAB PO SCH (20:34)
[2018-09-04] MEDS: CALCIUM POLYCARBOPHIL 1 TAB PO SCH (20:34)
[2018-09-04] MEDS: METOPROLOL SUCC 25MG EXT REL TAB PO SCH (20:37)
[2018-09-04] MEDS ORDERED: INSULIN GLARGINE SOLOSTAR 100 UNITS/ML 3 ML PEN SC SCH (21:00)
[2018-09-04] MEDS: DOCUSATE SODIUM/SENNA 50/8.6MG TAB PO SCH (21:49)
[2018-09-04] MEDS: INSULIN ASPART 100 UNITS/ML 3 ML PEN SC SCH (21:51)
[2018-09-04] MEDS: INSULIN GLARGINE SOLOSTAR 100 UNITS/ML 3 ML PEN SC SCH (21:51)
[2018-09-05] MEDS: CEFAZOLIN 2000MG 2,000 MG/15 ML SYR IV SCH (03:42)
[2018-09-05] MEDS: KETOROLAC TROMETHAMINE 15 MG/ML VIAL IV SCH ×2 (06:15→12:50)
[2018-09-05] MEDS: POLYETHYLENE (MIRALAX) 17 GM PACK PO SCH ×4 (06:32→23:39)
[2018-09-05 07:52] LABS: Hematocrit (blood only) 34.8 % (37-47); Immature Granulocytes # (auto) 0.01 K/uL (0.00-0.02); Immature Granulocytes % (auto) 0.1 %; Lymphocytes # (auto) 0.78 K/uL (1.2-3.4); Lymphocytes % (auto) 7.7 %; Mean Corpuscular Hgb Conc 31.6 g/dL (32-36); Mean Corpuscular Volume 88.1 fL (80-100); Mean Platelet Volume 10.5 fL (7.4-10.4); Monocytes # (auto) 0.57 K/uL (0.11-0.59); Monocytes % (auto) 5.6 %; Neutrophils # (auto) 8.82 K/uL (1.4-6.5); Neutrophils % (auto) 86.6 %; Platelet Count 221 K/uL (130-400); RDW Coefficient of Variation 14.1 % (11.5-14.5); RDW Standard Deviation 45.7 fL (36.4-46.3); Red Blood Count 3.95 M/uL (4.2-5.4); White Blood Count 10.18 K/uL (4.8-10.8)
--- NOTE | 2018-09-05 07:58 | Anesthesiology Progress Note ---
Date of Service September 05, 2018 Anesthesia Post Procedure Vital Signs Vital Signs: Temp Pulse Pulse Pulse Pulse Resp BP 09/05/18 07:06 36.7 C 61 14 09/05/18 03:20 36.6 C 78 16 09/04/18 23:35 36.8 C 77 16 09/04/18 20:36 81 09/04/18 19:45 37.1 C 87 16 09/04/18 18:17 36.4 C L 90 16 09/04/18 17:17 36.4 C L 63 16 09/04/18 16:15 36.4 C L 56 L 16 09/04/18 16:01 51 L 13 125/62 09/04/18 16:00 51 L 15 09/04/18 15:56 51 L 16 145/63 H 09/04/18 15:55 50 L 12 09/04/18 15:51 52 L 15 150/59 H 09/04/18 15:50 52 L 12 09/04/18 15:46 52 L 13 155/57 H 09/04/18 15:45 51 L 14 09/04/18 15:41 51 L 13 141/63 H 09/04/18 15:40 53 L 11 L 09/04/18 15:36 53 L 16 157/64 H 09/04/18 15:35 54 L 15 09/04/18 15:34 36.5 C 54 L 16 09/04/18 15:31 56 L 13 138/56 L 09/04/18 15:30 61 13 09/04/18 15:27 53 L 14 09/04/18 15:26 55 L 17 133/53 L 09/04/18 15:25 54 L 17 09/04/18 15:20 56 L 14 134/57 L 09/04/18 15:16 54 L 15 119/58 L 09/04/18 15:15 56 L 16 09/04/18 15:11 49 L 22 103/59 L 09/04/18 15:10 50 L 52 L 16 09/04/18 15:06 36.2 C L 51 L 51 L 16 128/54 L 09/04/18 15:05 09/04/18 11:14 36.8 C 61 20 BP BP Pulse Ox 09/05/18 07:06 151/80 H 94 09/05/18 03:20 130/76 92 02/20/19 23:35 119/69 95 09/04/18 20:36 132/85 09/04/18 19:45 132/79 99 09/04/18 18:17 150/74 H 100 09/04/18 17:17 135/76 100 09/04/18 16:15 130/82 95 09/04/18 16:01 100 09/04/18 16:00 100 09/04/18 15:56 100 09/04/18 15:55 100 09/04/18 15:51 100 09/04/18 15:50 100 09/04/18 15:46 100 09/04/18 15:45 100 09/04/18 15:41 100 09/04/18 15:40 100 09/04/18 15:36 100 09/04/18 15:35 100 09/04/18 15:34 138/56 L 100 09/04/18 15:31 100 09/04/18 15:30 100 09/04/18 15:27 100 09/04/18 15:26 100 09/04/18 15:25 100 09/04/18 15:20 100 09/04/18 15:16 100 09/04/18 15:15 100 09/04/18 15:11 98 09/04/18 15:10 103/59 L 99 09/04/18 15:06 128/54 L 96 09/04/18 15:05 97 09/04/18 11:14 96 Pain Intensity Right Groin: Pain Intensity: 3 Notes Mental Status: alert / awake / arousable and participated in evaluation Patient Amnestic to Procedure: Yes Nausea / Vomiting: adequately controlled Pain: adequately controlled Airway Patency, RR, SpO2: stable & adequate BP & HR: stable & adequate Hydration State: stable & adequate Anesthetic Complications: no major complications apparent and Pt Satisfied with anesthetic care
[2018-09-05 08:23] LABS: BUN Creatinine Ratio 16.4 (10-20); Calcium 8.1 mg/dl (8.5-10.1); Creatinine Clr Calc Pharmacy 33.8 ml/min; Est GFR (African American) 36.7; Est GFR (Non-African American) 31.7
[2018-09-05] MEDS ORDERED: ENALAPRIL MALEATE 10 MG TAB PO SCH (09:00)
[2018-09-05] MEDS ORDERED: ESCITALOPRAM OXALATE 10 MG TAB PO SCH (09:00)
[2018-09-05] MEDS: DULOXETINE HCL 60 MG CAP PO SCH (09:07)
[2018-09-05] MEDS: LANSOPRAZOLE 30 MG SOLTAB PO SCH (09:07)
[2018-09-05] MEDS: ESCITALOPRAM OXALATE 10 MG TAB PO SCH (09:08)
[2018-09-05] MEDS: CALCIUM POLYCARBOPHIL 1 TAB PO SCH ×2 (09:31→21:12)
[2018-09-05] MEDS: INSULIN ASPART 100 UNITS/ML 3 ML PEN SC SCH ×4 (09:34→21:17)
[2018-09-05] MEDS: INSULIN GLARGINE SOLOSTAR 100 UNITS/ML 3 ML PEN SC SCH ×2 (09:35→21:18)
--- NOTE | 2018-09-05 10:04 | Orthopedic Progress Note ---
Date of Service September 05, 2018 Assessment & Plan (1) Lumbar stenosis with neurogenic claudication: This time we will continue physical therapy advance her bowel regimen and hopefully discharge home this weekend. Subjective Back pain is controlled leg symptoms markedly improved. Physical Exam 2 Vital Signs (Past 24 Hours): Last Vital Signs Temp 36.7 C 09/05/18 07:06 Pulse 61 09/05/18 07:06 Resp 14 09/05/18 07:06 BP 151/80 H 09/05/18 07:06 Pulse Ox 94 09/05/18 07:06 Physical Exam: On exam she is good strength testing appears comfortable.
[2018-09-05] MEDS ORDERED: GLIMEPIRIDE 2 MG TAB PO SCH (16:30)
[2018-09-05] MEDS: TRAMADOL HCL 50 MG TABLET PO PRN (19:00)
[2018-09-05] MEDS: METOPROLOL SUCC 25MG EXT REL TAB PO SCH (21:11)
[2018-09-05] MEDS: ASPIRIN 81 MG ECTAB PO SCH (21:12)
[2018-09-05] MEDS: FEXOFENADINE HCL 180 MG TAB PO SCH (21:13)
[2018-09-05] MEDS: clonazePAM 1 MG TAB PO SCH (21:16)
[2018-09-05] MEDS: DOCUSATE SODIUM/SENNA 50/8.6MG TAB PO SCH (21:16)
--- NOTE | 2018-09-05 21:28 | Hospitalist Progress Note ---
Date of Service September 05, 2018 Assessment & Plan (1) Status post lumbar surgery: Post op day# 1 S/P hardware removal L2-L4, lumbar decompression fusion L1- L2 by Dr Odalis DAVISON#100ml Currently pt doing well post op, pain controlled -pain management per ortho -wound management per ortho -PT/OT as appropriate -DVT prophylaxis per ortho -incentive spirometry -monitor H&H for acute blood loss anemia (2) KATHI (acute kidney injury): Acute elevation in creat . Uncertain of baseline, however, recent creat was 1.1 with a GFR of 48 one month ago. Mild elevation to 1.3 prior to surgery a couple of weeks ago, now at 1.57. ACEI held already and would cont to hold and trend creatinine in am on labwork. Would avoid NSAIDs but ASA ok once cleared by Ortho. (3) Diabetes mellitus, type II: A1c: 6.2 on 08/21/18 -monitor BSGs -hold metformin, glimepiride while in hospital -Novolog, Lantus sliding scale per protocol -glucose at goal (4) Coronary artery disease: stable, asymptomatic. cont metoprolol. resume ASA once cleared by ortho (5) Chronic systolic heart failure: chronic, compensated. Hx echo 2017: EF: 35%, trace mitral and tricuspid insufficiency. cont medication management with Toprol XL, holding ASA until ORtho clears her, holding ACEI in setting of KATHI above. Diurese PRN (6) HTN (hypertension): controlled, hold ACEI in setting of KATHI. (7) Depression: Hx Depression and anxiety -continue home regimen (8) DVT prophylaxis: SCDs per Ortho Full Code Dispo-likely to home in 1-2 days. [facility] Subjective pain controlled tolerating PO walking around halls asking when she can go home no BM yet. Physical Exam 2 Vital Signs (Past 24 Hours): Last Vital Signs Temp 36.7 C 09/05/18 14:37 Pulse 61 09/05/18 21:10 Resp 14 09/05/18 14:37 BP 130/76 09/05/18 21:10 Pulse Ox 99 09/05/18 14:37 CONSTITUTIONAL: WNWD, vitals as above, generally well-appearing ENT: MMM RESPIRATORY: clear to auscultation bilaterally, no crackles, rales or wheezes, normal respiratory effort CARDIOVASCULAR: regular rate and rhythm, S1 and 2 heard without murmurs, gallops or rubs, no JVD, no peripheral edema GASTROINTESTINAL: normal bowel sounds, soft, nontender, nondistended MUSCULOSKELETAL: strength 5/5 throughout, head is normocephalic and atraumatic SKIN: warm and dry, incision on back dressing intact NEUROLOGIC: extremities NVI PSYCHIATRIC: alert cooperative and oriented to person, place and time. Results & Data Laboratory Results Short CBC 09/05/18 Range/Units 07:30 WBC 10.18 (4.8-10.8) K/uL Hgb 11.0 L (12.0-16.0) g/dL Hct 34.8 L (37-47) % Plt Count 221 (130-400) K/uL BMP 09/05/18 07:30 Sodium 136 Potassium 5.0 Chloride 104 Carbon Dioxide 26 BUN 26 H Creatinine 1.57 H Glucose 163 H Calcium 8.1 L Medications Administered Current Inpatient Medications Acetaminophen (Tylenol) 1,000 mg PO Q8H PRN PRN Reason: MILD Pain Rating 1,2,3 Stop: 10/04/18 16:18 Last Admin: 09/05/18 06:36 Dose: 1,000 mg Hydrocodone Bitart/Acetaminophen ([place] 5/325) 1 - 2 tab PO Q4H PRN PRN Reason: Moderate-Severe Pain Stop: 09/18/18 16:18 Last Admin: 09/04/18 17:21 Dose: 2 tab Al Hydrox/Mg Hydrox/Simethicone (Maalox) 30 ml PO Q6H PRN PRN Reason: Dyspepsia Stop: 10/04/18 16:18 Aspirin (Ecotrin Ectab) 81 mg PO QPM [facility] Stop: 10/04/18 20:59 Last Admin: 09/05/18 21:12 Dose: 81 mg Bisacodyl (Dulcolax) 10 mg AL DAILY PRN PRN Reason: Constipation Stop: 10/04/18 16:18 Calcium Polycarbophil (Fibercon) 2 tab PO BID [facility] Stop: 10/04/18 20:59 Last Admin: 09/05/18 21:12 Dose: 2 tab Clonazepam (Klonopin) 1 mg PO QPM [facility] Stop: 10/04/18 20:59 Last Admin: 09/05/18 21:16 Dose: 1 mg Dextrose (Dextrose 50%) 25 - 50 ml IV UD PRN; Protocol PRN Reason: Hypoglycemia Protocol Stop: 10/04/18 20:03 Diphenhydramine HCl (Benadryl Capsule) 25 mg PO Q6H PRN PRN Reason: Allergic Rhinitis/Insomnia Stop: 10/04/18 16:18 Duloxetine HCl (Cymbalta) 60 mg PO QAM [facility] Stop: 10/05/18 08:59 Last Admin: 09/05/18 09:07 Dose: 60 mg Enalapril Maleate (Vasotec) 20 mg PO DAILY [facility] Stop: 10/05/18 08:59 Escitalopram Oxalate (Lexapro) 20 mg PO QAM ALONSO Stop: 10/05/18 08:59 Last Admin: 09/05/18 09:08 Dose: 20 mg Famotidine (Pepcid) 20 mg PO Q12H PRN PRN Reason: Dyspepsia Stop: 10/04/18 16:18 Fexofenadine HCl (Jaycee) 180 mg PO HS [facility] Stop: 10/04/18 20:59 Last Admin: 09/05/18 21:13 Dose: 180 mg Glucagon (Glucagen) 1 mg SQ UD PRN; Protocol PRN Reason: Hypoglycemia Protocol Stop: 10/04/18 20:03 Glucose (Dex4 Glucose) 4 - 8 tabs PO UD PRN; Protocol PRN Reason: Hypoglycemia Protocol Stop: 10/04/18 20:03 Glucose (Glucose 40%) 15 - 30 gm PO UD PRN; Protocol PRN Reason: Hypoglycemia Protocol Stop: 10/04/18 20:03 Hydroxyzine HCl (Vistaril) 25 mg PO Q8H PRN PRN Reason: Anxiety Stop: 10/04/18 16:18 Acetaminophen (Ofirmev) 1,000 mg in 100 mls @ 400 mls/hr IV Q8 PRN PRN Reason: MILD Pain Rating 1,2,3 Stop: 10/04/18 16:18 Lorazepam (Ativan) 0.5 mg in 1 mls @ 0.5 mls/min IV Q8H PRN PRN Reason: Sedation/Anxiety Stop: 10/04/18 16:18 Promethazine HCl 12.5 mg/ (Sodium Chloride) 50.5 mls @ 204 mls/hr IV Q6H PRN PRN Reason: Nausea &/or Vomiting Stop: 10/04/18 16:18 Insulin Aspart (Novolog Flexpen) 0 units SC ACHS [facility] Stop: 10/04/18 20:59 Last Admin: 09/05/18 21:17 Dose: Not Given Insulin Glargine (Lantus Solostar Pen) 0 units SC Q12 ALONSO; Protocol Stop: 10/04/18 20:59 Last Admin: 09/05/18 21:18 Dose: 5 units Lansoprazole (Prevacid) 30 mg PO QAM [facility] Stop: 10/05/18 08:59 Last Admin: 09/05/18 09:07 Dose: 30 mg Lorazepam (Ativan) 0.5 mg PO Q8H PRN PRN Reason: Sedation/Anxiety Stop: 10/04/18 16:18 Magnesium Hydroxide (Milk Of Magnesia) 30 ml PO DAILY PRN PRN Reason: Constipation Stop: 10/04/18 16:18 Metoclopramide HCl (Reglan) 10 mg IV Q6H PRN PRN Reason: Nausea &/or Vomiting Stop: 10/04/18 16:18 Metoprolol Succinate (Toprol Xl) 25 mg PO QPM [facility] Stop: 10/04/18 20:59 Last Admin: 09/05/18 21:11 Dose: 25 mg Miscellaneous (Pneumococcal Vacc, Do Not Administer) 1 ea N/A PRN PRN PRN Reason: Notification Stop: 10/04/18 16:18 Miscellaneous (Flu Vaccine, Do Not Administer) 1 ea N/A PRN PRN PRN Reason: Notification Stop: 10/04/18 16:18 Miscellaneous (Carbohydrates For Hypoglycemia) 15 - 30 gm PO UD PRN PRN Reason: Hypoglycemia Treatment Stop: 10/04/18 20:03 Ondansetron HCl (Zofran) 4 mg IV Q6H PRN PRN Reason: Nausea &/or Vomiting Stop: 10/04/18 16:18 Ondansetron HCl (Zofran) 4 mg PO Q6H PRN PRN Reason: Nausea Stop: 10/04/18 16:18 Polyethylene Glycol (Miralax Powder Packet) 17 gm PO Q6 [facility] Stop: 10/05/18 05:59 Last Admin: 09/05/18 18:53 Dose: 17 gm Senna/Docusate Sodium (Senokot S) 2 tab PO HS ALONSO Stop: 10/04/18 20:59 Last Admin: 09/05/18 21:16 Dose: 2 tab Sodium Biphosphate/Sodium Phosphate (Fleet Enema) 132 ml AL ONE PRN PRN Reason: Constipation Stop: 10/04/18 16:18 Tramadol HCl (Ultram) 50 - 100 mg PO Q4H PRN PRN Reason: Moderate-Severe pain Stop: 10/04/18 16:18 Last Admin: 09/05/18 19:00 Dose: 100 mg
[2018-09-06] MEDS: POLYETHYLENE (MIRALAX) 17 GM PACK PO SCH ×3 (06:16→18:30)
[2018-09-06 06:37] LABS: Hematocrit (blood only) 33.1 % (37-47); Hemoglobin 10.4 g/dL (12.0-16.0); Mean Corpuscular Hgb Conc 31.4 g/dL (32-36); Mean Corpuscular Volume 87.8 fL (80-100); Mean Platelet Volume 10.6 fL (7.4-10.4); Platelet Count 185 K/uL (130-400); RDW Coefficient of Variation 14.7 % (11.5-14.5); RDW Standard Deviation 47.4 fL (36.4-46.3); Red Blood Count 3.77 M/uL (4.2-5.4); White Blood Count 6.88 K/uL (4.8-10.8)
[2018-09-06 07:12] LABS: BUN Creatinine Ratio 18.7 (10-20); Calcium 8.2 mg/dl (8.5-10.1); Creatinine Clr Calc Pharmacy 37.7 ml/min; Est GFR (African American) 41.8; Est GFR (Non-African American) 36.1; Potassium 4.8 mmol/L (3.5-5.1)
[2018-09-06] MEDS: TRAMADOL HCL 50 MG TABLET PO PRN ×2 (08:17→20:32)
[2018-09-06] MEDS: ESCITALOPRAM OXALATE 10 MG TAB PO SCH (08:18)
[2018-09-06] MEDS: CALCIUM POLYCARBOPHIL 1 TAB PO SCH ×2 (08:18→20:26)
[2018-09-06] MEDS: DULOXETINE HCL 60 MG CAP PO SCH (08:18)
[2018-09-06] MEDS: INSULIN GLARGINE SOLOSTAR 100 UNITS/ML 3 ML PEN SC SCH ×2 (08:19→20:47)
[2018-09-06] MEDS: LANSOPRAZOLE 30 MG SOLTAB PO SCH (08:19)
[2018-09-06] MEDS: INSULIN ASPART 100 UNITS/ML 3 ML PEN SC SCH ×4 (08:22→20:47)
--- NOTE | 2018-09-06 10:04 | Hospitalist Progress Note ---
Date of Service September 06, 2018 Assessment & Plan (1) Status post lumbar surgery: Post op day# 2 S/P hardware removal L2-L4, lumbar decompression fusion L1- L2 by Dr Odalis DAVISON#100ml Pt continues to do well post op with pain controlled. -pain management per ortho -wound management per ortho -PT/OT as appropriate -DVT prophylaxis per ortho - SCDs -incentive spirometry -Hgb: 10.4 from 12 pre-op. (2) KATHI (acute kidney injury): Cr: 1.4 today from 1.5 yesterday and 1.28 pre-op on 08/21/18. -continue to hold PJ inhibitor and monitor renal functions -avoid NSAIDs (3) Diabetes mellitus, type II: A1c: 6.2 on 08/21/18 Initial elevated glucose up to 355 after surgery and receiving decadron and prior to insulin -Glucose well controlled since -monitor BSGs -hold metformin, glimepiride while in hospital -Novolog, Lantus sliding scale per protocol (4) Coronary artery disease: Denies SOB, CP. -Continue metoprolol -Recommend resuming aspirin when ok'd by ortho (5) Chronic systolic heart failure: Chronic. Hx echo 2017: EF: 35%, trace mitral and tricuspid insufficiency -Appears euvolemic -Continue metoprolol (6) HTN (hypertension): Stable -Continue holding PJ inhibitor with KATHI -Continue metoprolol (7) Depression: Hx Depression and anxiety -continue duloxetine, escitalopram (8) DVT prophylaxis: SCDs per Ortho Full Code Disposition per primary team-likely to home in [address] Buck in [place] for routine care Pt was seen with Dr Jones. See addendum Supervising Physician Co-Signing Physician Notes I have seen and examined the patient and have discussed the case with the provider above. I agree with the assessment and plan as stated. Robert, DO Subjective Pt seen and examined. Lying in bed Reports back pain controlled. Drinking well. States eating, however reports she is used to eating a lot of candy and potato chips and eating more healthy diet in hospital has been a change for her. No N/V. Passing gas, no BM yet. Urinating without difficulty. Denies THAYER, dizziness, fever/chills, CP, SOB, abdominal pain, paresthesias, extremity weakness. Physical Exam 2 Vital Signs (Past 24 Hours): Last Vital Signs Temp 36.6 C 09/06/18 08:09 Pulse 62 09/06/18 08:09 Resp 18 09/06/18 08:09 BP 135/72 09/06/18 08:09 Pulse Ox 94 09/06/18 08:09 Physical Exam: General: no distress, obese Head: normocephalic, atraumatic Eyes: conjunctiva non-injected, anicteric ENT: normal inspection external ears, nose, mucous membranes moist Neck: supple, trachea midline Lungs: clear, no respiratory distress, no wheezing/rhonchi/rales CV: RRR, no pretibial edema Abd: normal BS, soft, non-tender Back: dressing in place and dry. MIRYAM drain with serosanguineous draiange Ext: no cyanosis, no calf tenderness, ROM BLE intact, distal pulses intact and sensation to light touch intact. Neuro: A&O x 3, no focal deficits noted, normal affect Skin: warm, dry Results & Data Laboratory Results Short CBC 09/06/18 Range/Units 06:12 WBC 6.88 (4.8-10.8) K/uL Hgb 10.4 L (12.0-16.0) g/dL Hct 33.1 L (37-47) % Plt Count 185 (130-400) K/uL BMP 09/06/18 06:12 Sodium 143 D Potassium 4.8 Chloride 111 H Carbon Dioxide 29 BUN 26 H Creatinine 1.41 H Glucose 97 Calcium 8.2 L
--- NOTE | 2018-09-06 10:09 | Orthopedic Progress Note ---
Date of Service September 06, 2018 Assessment & Plan (1) Lumbar stenosis with neurogenic claudication: We will continue physical therapy today monitor her MIRYAM output anticipate discharge home tomorrow. Present on Admission?: Yes Subjective Patient's back pain is controlled leg symptoms markedly improved. Physical Exam 2 Vital Signs (Past 24 Hours): Last Vital Signs Temp 36.6 C 09/06/18 08:09 Pulse 62 09/06/18 08:09 Resp 18 09/06/18 08:09 BP 135/72 09/06/18 08:09 Pulse Ox 94 09/06/18 08:09 Physical Exam: Patient appears comfortable. She has good strength testing.
--- NOTE | 2018-09-06 15:44 | Orthopedic Progress Note ---
Date of Service September 06, 2018 Assessment & Plan (1) Lumbar stenosis with neurogenic claudication: This time we will continue physical therapy monitor her MIRYAM put in advance her bowel regimen. Anticipate discharge home tomorrow. Present on Admission?: Yes Subjective Back pain is controlled right leg symptoms are markedly improved. Physical Exam 2 Vital Signs (Past 24 Hours): Last Vital Signs Temp 37 C 09/06/18 11:50 Pulse 64 09/06/18 11:50 Resp 17 09/06/18 11:50 BP 130/80 09/06/18 11:50 Pulse Ox 95 09/06/18 11:50 Physical Exam: Patient appears comfortable. She has good strength testing.
[2018-09-06] MEDS: FEXOFENADINE HCL 180 MG TAB PO SCH (20:26)
[2018-09-06] MEDS: ASPIRIN 81 MG ECTAB PO SCH (20:26)
[2018-09-06] MEDS: DOCUSATE SODIUM/SENNA 50/8.6MG TAB PO SCH (20:27)
[2018-09-06] MEDS: METOPROLOL SUCC 25MG EXT REL TAB PO SCH (20:29)
[2018-09-06] MEDS: clonazePAM 1 MG TAB PO SCH (20:32)
[2018-09-07] MEDS: POLYETHYLENE (MIRALAX) 17 GM PACK PO SCH ×2 (00:38→05:40)
[2018-09-07 07:28] LABS: BUN Creatinine Ratio 23.8 (10-20); Calcium 8.1 mg/dl (8.5-10.1); Creatinine Clr Calc Pharmacy 44.3 ml/min; Est GFR (African American) 50.8; Est GFR (Non-African American) 43.9; Potassium 4.9 mmol/L (3.5-5.1)
[2018-09-07] MEDS: TRAMADOL HCL 50 MG TABLET PO PRN (07:47)
[2018-09-07] MEDS: DULOXETINE HCL 60 MG CAP PO SCH (07:49)
[2018-09-07] MEDS: ESCITALOPRAM OXALATE 10 MG TAB PO SCH (07:49)
[2018-09-07] MEDS: CALCIUM POLYCARBOPHIL 1 TAB PO SCH (07:50)
[2018-09-07] MEDS: LANSOPRAZOLE 30 MG SOLTAB PO SCH (07:50)
[2018-09-07] MEDS: INSULIN ASPART 100 UNITS/ML 3 ML PEN SC SCH (08:27)
[2018-09-07] MEDS: INSULIN GLARGINE SOLOSTAR 100 UNITS/ML 3 ML PEN SC SCH (08:28)
--- NOTE | 2018-09-07 10:44 | Discharge Summary ---
Date of Service September 07, 2018 Admission HPI Per Admitting Provider This is a 78-year-old female well-known to me that presents with chronic persistent back and leg pain. After failing extensive course of nonoperative care she is here for surgical intervention. Admission Exam (Per Admitting) Constitutional WD/WN, vitals as above well developed Eyes normal visual dan by confrontation ENMT external ear and nose normal, oropharynx normal Neck normal visual inspection Respiratory normal respiratory effort Cardiovascular Rate/Rhythm: regular rate Extremities: normal capillary refill Gastrointestinal (Abdomen) Inspection/Auscultation: abdomen normal to inspection Musculoskeletal Extremities: extremities normal to inspection and strength 5/5 throughout Skin no rashes, warm and dry Neurologic patellar DTR's 2+ bilat, sensation intact normal touch/pain/proprioception and deep tendon reflexes 2+ bilaterally Psychiatric A+Ox3, euthymic affect Eye Contact: good eye contact Discharge Data Consultations 09/04/18 16:19 Consult Case Management - Discharge Planning Routine Consult Hospitalist Routine Procedures Performed Operation Date: 09/04/18 11:55 Actual Procedures p L1-L2 Posterior Lumbar Decompression and Fusion, L1-L2 Interbody Cage(Not Applicable) - Orlando Jacobo DO s L2-L4 Removal of Hardware(Not Applicable) - Orlando Jacobo DO Hospital Course (1) Status post lumbar surgery: Patient had an uncomplicated hospital course. She may progress in physical therapy. She had a bowel movement. She was ambulating over 520 steps feet plus steps in physical therapy. She is discharged home on postoperative day 3. Discharge Instructions Per thoracolumbar spinal fusion protocol Supervising Physician Co-Signing Physician Notes Dr. Orlando Jacobo
== END 2018-09-07 11:34 | disposition home or self-care (01) | DRG 454 ==
LOC: ASU 10:06 → 3N 14:52

== ENCOUNTER 2020-10-26 08:01 | Inpatient (IN) ==
--- NOTE | 2020-09-22 14:08 | PAT Medication Instructions ---
Medication Instructions Date of Service September 22, 2020 Home Medications aspirin [Aspir-81] 81 mg PO QPM calcium polycarbophil [Fiber-Tabs] 2 tab PO BID clonazepam 1.5 mg PO HS glimepiride 0.5 mg PO HS lansoprazole 30 mg PO BID metformin 500 mg PO QAM metoprolol succinate 25 mg PO QPM benazepril [Lotensin] 20 mg PO QAM duloxetine [Cymbalta] 60 mg PO BID escitalopram oxalate [Lexapro] 20 mg PO QPM ferrous sulfate 325 mg PO QAM levothyroxine 75 mcg PO QAM magnesium 400 mg PO QPM DO NOT take the morning of surgery calcium polycarbophil [Fiber-Tabs] 2 tab PO BID metformin 500 mg PO QAM benazepril [Lotensin] 20 mg PO QAM ferrous sulfate 325 mg PO QAM Take morning of surgery With a small sip of water, OTHERWISE NOTHING TO EAT OR DRINK AFTER MIDNIGHT: lansoprazole 30 mg PO BID duloxetine [Cymbalta] 60 mg PO BID levothyroxine 75 mcg PO QAM Take evening before surgery aspirin [Aspir-81] 81 mg PO QPM calcium polycarbophil [Fiber-Tabs] 2 tab PO BID clonazepam 1.5 mg PO HS glimepiride 0.5 mg PO HS lansoprazole 30 mg PO BID metoprolol succinate 25 mg PO QPM duloxetine [Cymbalta] 60 mg PO BID escitalopram oxalate [Lexapro] 20 mg PO QPM magnesium 400 mg PO QPM Other Notes If you have any questions please call us at [phone] or [phone] or [phone] or [phone]
--- NOTE | 2020-09-27 08:03 | History & Physical Report ---
Date of Service September 27, 2020 date of surgery: 10/26/20 Procedure: Right Total Knee Arthroplasty Assessment & Plan (1) Arthritis of right knee: Risks and benefits of procedure discussed in detail today, patient would like to proceed with a Right total knee replacement at [facility] as scheduled. will obtain medical clearance prior to surgery as well as obtain PATs at [facility]. Will place on ASA 81mg po bid x 1 month post op, f/u 2 weeks post op for routine post-operative care and x-ray, sooner if having any problems. will make arrangements for HHPT at the time of discharge. At this point in time, has failed conservative measures and would like to proceed with surgical intervention. The risks and benefits have been discussed including, but not limited to, risk of infection, nerve injury, stiffness, loss of motion, failure to improve, etc. Reasonable outcomes and options of treatment were discussed. An explanation of appropriate alternatives to the procedure that may be advantageous were discussed and their risks and benefits, as well as the risks and benefits of not proceeding with treatment. I offered to answer any additional inquiries concerning the treatment involved. All the patient's questions were answered. The patient is agreeable, understanding of the treatment plan and alternatives, and wishes to proceed with the treatment plan. History of Present Illness Chief Complaint: Right knee pain Primary Care Provider: Ty Buck MD Antonina is a 80 year old female who complains of Right knee pain, presents for pre-op evaluation prior to a Right total knee replacement by dr Zaidi at [facility]. She complains of pain, crepitus, decreased range of motion and stiffness in her Right knee. Currently she states that the symptoms are moderate-severe and the pain is described as aching, sharp and throbbing. Her symptoms are aggravated by ascending stairs, daily activities, first steps while awake walking. Prior NSAIDs include Ibuprofen and Mobic. she has been treated with multiple previous visco and cortisone injections in the past without much relief. she also underwent right knee arthroscopy, partial meniscectomy and chondroplasty approximately 10 months ago without any improvement. Allergies Allergy/AdvReac Type Severity Reaction Status Date / Time codeine Allergy Intermediate Rash Verified 09/24/20 10:37 hydromorphone AdvReac Severe Hallucinati Verified 09/24/20 10:37 ons Lialrjl-Cgw-Adv Reductase AdvReac Intermediate Myalgias Verified 09/24/20 10:37 Inhibitor Home Medications Medication Instructions Recorded Confirmed Type aspirin [Aspir-81] 81 mg PO QPM 08/15/18 09/21/20 History calcium polycarbophil [Fiber-Tabs] 2 tab PO BID 08/15/18 09/21/20 History clonazepam 1.5 mg PO HS 08/15/18 09/21/20 History glimepiride 0.5 mg PO HS 08/15/18 09/21/20 History lansoprazole 30 mg PO BID 08/15/18 09/21/20 History metformin 500 mg PO QAM 08/15/18 09/21/20 History metoprolol succinate 25 mg PO QPM 08/15/18 09/21/20 History benazepril [Lotensin] 20 mg PO QAM 09/21/20 09/21/20 History duloxetine [Cymbalta] 60 mg PO BID 09/21/20 09/21/20 History escitalopram oxalate [Lexapro] 20 mg PO QPM 09/21/20 09/21/20 History ferrous sulfate 325 mg PO QAM 09/21/20 09/21/20 History levothyroxine 75 mcg PO QAM 09/21/20 09/21/20 History magnesium 400 mg PO QPM 09/21/20 09/21/20 History Past Med/Surg History Medical History Anxiety and depression Abraham esophagus Chronic back pain Coronary artery disease Non-obstructive Diabetes mellitus, type 2 NIDDM (oral) Dyslipidemia GERD (gastroesophageal reflux disease) Hiatal hernia History of anemia History of COVID-19 07/04/20 (tested at [facility]) > symptoms at time of dyspnea, body aches, hypoxia, delirium) > now resolved HTN (hypertension) Hypothyroidism LBBB (left bundle branch block) dating back to at least 06/16/2013 [place] EKG (echo done 2018) Lumbar stenosis with neurogenic claudication Systolic heart failure EF 40% on echo 08/02/18 Surgical History H/O hand surgery Right H/O laparoscopy "ovaries" H/O shoulder surgery Right History of bilateral tubal ligation History of cardiac cath x3 (most recent 10+ years ago) > no stents History of cholecystectomy History of colonoscopy History of esophagogastroduodenoscopy (EGD) History of hysterectomy Hx of tonsillectomy Previous back surgery Lumbar surgeries x4 (fusions + revisions) Removal previous hardware, posterior spinal fusion L1-L2: 09/04/18: Grade view 1, MAC#3, ETT 7.0 at [facility] S/P thyroid biopsy Family History Daughter Family history of diabetes mellitus Other Breast cancer FH: CAD (coronary artery disease) No family history of adverse response to anesthesia Social History Smoking Status: Never smoker Second Hand Exposure: No; Do You Dip or Chew Tobacco: No; Hx Alcohol Use: Yes Alcohol type: wine Hx Substance Use: No Preferred Language: Albanian Communication Ability: Effective Video Library Assistant Required: No Beliefs That Will Affect Care: None Current Living Situation: Family Current Living Situation Comment: [facility]IV[facility] WITH PT Feels Safe at Home: Yes Safety Concerns: Feels Safe At This Time Assistive Devices: Denture - Upper, Denture - Lower and Glasses Assistive Devices Comment: READING GLASSES Review of Systems Review of Systems: All systems reviewed & are unremarkable except as noted in HPI & below Constitutional: no fever, no chills and no sweats Respiratory: no cough and no dyspnea Cardiovascular: no chest pain, no dyspnea and no orthopnea Gastrointestinal: no abdominal pain, no nausea and no vomiting Musculoskeletal: as per Subjective / HPI Physical Exam Physical Exam: Ht: 5ft 3in WT: 99.79kg Constitutional: WD/WN, vitals as above no acute distress Respiratory: normal respiratory effort, lungs clear to auscultation no respiratory distress, no labored breathing and does not use accessory muscles Cardiovascular: RRR, no murmur, no edema Gastrointestinal (Abdomen): normal bowel sounds, soft, nontender, no hepatosplenomegaly Musculoskeletal: Knee: + knee abnormal to inspection (Right Knee- ), + effusion (+1 effusion), + surgical incision (well healed portals), + limited ROM of knee (ROM 0/3/110), + knee ROM with crepitation, + joint line tenderness (medial joint line) and + Madison's sign positive; no deformity, no skin erythema, no ecchymosis, no valgus laxity, no varus laxity, anterior drawer test negative, Ilan's sign negative and pivot shift test negative Results & Data Results & Data ([facility]) Laboratory Results Laboratory Results WBC 6.40 K/uL (4.8-10.8) 09/27/20 11:45 RBC 4.99 M/uL (4.2-5.4) 09/27/20 11:45 Hgb 14.5 g/dL (12.0-16.0) 09/27/20 11:45 Hct 44.9 % (37-47) 09/27/20 11:45 MCV 90.0 fL (80-100) 09/27/20 11:45 MCH 29.1 pg (25-34) 09/27/20 11:45 MCHC 32.3 g/dL (32-36) 09/27/20 11:45 RDW Std Deviation 45.9 fL (36.4-46.3) 09/27/20 11:45 RDW Coeff of Breezy 14.1 % (11.5-14.5) 09/27/20 11:45 Plt Count 233 K/uL (130-400) 09/27/20 11:45 MPV 10.6 fL (7.4-10.4) H 09/27/20 11:45 Immature Gran % (Auto) 0.5 % 09/27/20 11:45 Neut % (Auto) 61.3 % 09/27/20 11:45 Lymph % (Auto) 27.3 % 09/27/20 11:45 Hunt % (Auto) 7.0 % 09/27/20 11:45 Eos % (Auto) 3.6 % 09/27/20 11:45 Baso % (Auto) 0.3 % 09/27/20 11:45 Neut # (Auto) 3.92 K/uL (1.4-6.5) 09/27/20 11:45 Lymph # (Auto) 1.75 K/uL (1.2-3.4) 09/27/20 11:45 Hunt # (Auto) 0.45 K/uL (0.11-0.59) 09/27/20 11:45 Eos # (Auto) 0.23 K/uL (0-0.5) 09/27/20 11:45 Baso # (Auto) 0.02 K/uL (0-0.2) 09/27/20 11:45 Immature Gran # (Auto) 0.03 K/uL (0.00-0.02) H 09/27/20 11:45 PT 9.7 Seconds (9.0-12.0) 09/27/20 11:45 INR 1.0 (0.9-1.1) 09/27/20 11:45 APTT 25.1 Seconds (21.0-31.0) 09/27/20 11:45 PTT Ratio 1.0 09/27/20 11:45 Estimat Average Glucose 137 mg/dl 09/27/20 11:45 Hemoglobin A1c 6.4 % (4.5-5.6) H 09/27/20 11:45 Urine Color Yellow 09/27/20 11:45 Urine Appearance Cloudy (Clear) A 09/27/20 11:45 Urine pH 5.5 (4.5-7.5) 09/27/20 11:45 Ur Specific [place] 1.021 (1.000-1.030) 09/27/20 11:45 Urine Protein Negative (Negative) 09/27/20 11:45 Urine Glucose (UA) Negative (Negative) 09/27/20 11:45 Urine Ketones Negative (Negative) 09/27/20 11:45 Urine Blood Trace (Negative) H 09/27/20 11:45 Urine Nitrite Negative (Negative) 09/27/20 11:45 Urine Bilirubin Negative (Negative) 09/27/20 11:45 Urine Urobilinogen Negative (Negative) 09/27/20 11:45 Ur Leukocyte Esterase 3+ (Negative) H 09/27/20 11:45 Urine WBC (Auto) >30 /hpf (0-5) H 09/27/20 11:45 Urine RBC (Auto) 0-4 /hpf (0-4) 09/27/20 11:45 U Hyaline Cast (Auto) 1-5 /lpf (0-5) 09/27/20 11:45 U Epithel Cells (Auto) 20-30 /lpf (0-5) H 09/27/20 11:45 Urine Bacteria (Auto) Negative (Negative) 09/27/20 11:45 Blood Type O Positive 09/27/20 11:45 Antibody Screen NEGATIVE 09/27/20 11:45 Diagnostic Findings Right Knee X-ray: Right knee series showing degenerative changes to the right knee, narrowing of the medial compartment and patello-femoral joint with patellar spurring noted, findings showing joint space narrowing of the medial compartment and patello- femoral joint, osteophyte formation and subchondral sclerosis noted. overall v arus alignment. no acute bony pathology noted.
--- NOTE | 2020-09-27 08:21 | Anesthesiology Consultation ---
Date of Service September 27, 2020 Assessment & Plan (1) Encounter for pre-operative examination: - COVID screening: Per assessment on 09/27: Travel screen negative, no known COVID-19 positive contacts or current COVID-19 related symptoms. Patient was personally COVID positive 07/04/20 (tested at [facility]) > symptoms at time of dyspnea, body aches, hypoxia, delirium) > now resolved. DOS and preop COVID testing will be > 90 days since initial positive COVID testing date. Patient since fully vaccinated. Surgeon arranging preop COVID testing. Awaiting results. - Check BSG AM DOS - S/P Removal previous hardware, posterior spinal fusion L1-L2: 09/04/18: Grade view 1, MAC#3, ETT 7.0 at [facility] Chart Review Chart Review: Acceptable Risk for Surgery (pending cardiology office visit) and Patient seen in Pre Admission Testing Teaching & Discussion Pre-Anesthesia Teaching/Discussion Notes: Instructed NPO after midnight before surgery,except medications with 15 cc of water. Medication instructions provided according to the PAT guidelines. History Surgery Operation Date: 10/26/20 09:55 Proposed Procedures p Right Total Knee Arthroplasty - Brayan Zaidi DO Height/Weight Height: 5 ft 3 in Weight: 101.6 kg Allergies Allergy/AdvReac Type Severity Reaction Status Date / Time codeine Allergy Intermediate Rash Verified 09/24/20 10:37 hydromorphone AdvReac Severe Hallucinati Verified 09/24/20 10:37 ons Smaxbnb-Oqt-Drs Reductase AdvReac Intermediate Myalgias Verified 09/24/20 10:37 Inhibitor Medications Home Medications Medication Instructions Recorded Confirmed Last Taken aspirin [Aspir-81] 81 mg PO QPM 08/15/18 09/21/20 09/03/18 18:00 calcium polycarbophil [Fiber-Tabs] 2 tab PO BID 08/15/18 09/21/20 09/01/18 10:00 clonazepam 1.5 mg PO HS 08/15/18 09/21/20 09/03/18 21:00 glimepiride 0.5 mg PO HS 08/15/18 09/21/20 09/03/18 18:00 lansoprazole 30 mg PO BID 08/15/18 09/21/20 09/03/18 10:00 metformin 500 mg PO QAM 08/15/18 09/21/20 09/03/18 10:00 metoprolol succinate 25 mg PO QPM 08/15/18 09/21/20 09/03/18 18:00 benazepril [Lotensin] 20 mg PO QAM 09/21/20 09/21/20 Unknown duloxetine [Cymbalta] 60 mg PO BID 09/21/20 09/21/20 Unknown escitalopram oxalate [Lexapro] 20 mg PO QPM 09/21/20 09/21/20 Unknown ferrous sulfate 325 mg PO QAM 09/21/20 09/21/20 Unknown levothyroxine 75 mcg PO QAM 09/21/20 09/21/20 Unknown magnesium 400 mg PO QPM 09/21/20 09/21/20 Unknown Past Medical History Medical History Anxiety and depression Abraham esophagus Chronic back pain Coronary artery disease Non-obstructive Diabetes mellitus, type 2 NIDDM (oral) Dyslipidemia GERD (gastroesophageal reflux disease) Hiatal hernia History of anemia History of COVID-07/04/20 (tested at [facility]) > symptoms at time of dyspnea, body aches, hypoxia, delirium) > now resolved HTN (hypertension) Hypothyroidism LBBB (left bundle branch block) dating back to at least 06/16/2013 [place] (echo done 2018) Lumbar stenosis with neurogenic claudication Systolic heart failure EF 40% on echo 08/02/18 Exercise / Class Metabolic Activity III < 4 Walking/Shop/Light housework Past Family History Family History Daughter Family history of diabetes mellitus Other Breast cancer FH: CAD (coronary artery disease) No family history of adverse response to anesthesia Past Surgical History Surgical History H/O hand surgery Right H/O laparoscopy "ovaries" H/O shoulder surgery Right History of bilateral tubal ligation History of cardiac cath x3 (most recent 10+ years ago) > no stents History of cholecystectomy History of colonoscopy History of esophagogastroduodenoscopy (EGD) History of hysterectomy Hx of tonsillectomy Previous back surgery Lumbar surgeries x4 (fusions + revisions) Removal previous hardware, posterior spinal fusion L1-L2: 09/04/18: Grade view 1, MAC#3, ETT 7.0 at [facility] S/P thyroid biopsy Past Anesthesia History No Hx of Anesthesia Complications and No Family Hx of Anesthesia Complications History of PONV No Hx of PONV and No Hx of Motion Sickness Social History Smoking Status: Never smoker Do You Dip or Chew Tobacco: No Hx Alcohol Use: Yes Alcohol type: wine alcohol intake frequency: holidays/special occasions only (Rare) Hx Substance Use: No Review of Systems Patient denies chest pain, shortness of breath, fever, chills, cough, wheezing, palpitations. Physical Exam Vital Signs VITALS BP 126/79 P 66 TEMP 98.5 SP02 96%RA RESP 18 PHYSICAL Full neck and c-spine range of motion. Full TMJ range of motion. TMD 4 finger breaths Mallampati Score 2 Dentition: full dentures upper/lower Lungs: clear throughout to auscultation Cardiac: regular rate and rhythm, no murmurs noted Spine: normal Carotid arteries: negative bruit Extremities: no edema Short neck Testing Laboratory Results 09/27/20 11:45 09/27/20 11:45 PT 9.7 Seconds (9.0-12.0) 09/27/20 11:45 INR 1.0 (0.9-1.1) 09/27/20 11:45 APTT 25.1 Seconds (21.0-31.0) 09/27/20 11:45 Hemoglobin A1c 6.4 % (4.5-5.6) H 09/27/20 11:45 Urine Color Yellow 09/27/20 11:45 Urine Appearance Cloudy (Clear) A 09/27/20 11:45 Urine pH 5.5 (4.5-7.5) 09/27/20 11:45 Ur Specific [place] 1.021 (1.000-1.030) 09/27/20 11:45 Urine Protein Negative (Negative) 09/27/20 11:45 Urine Glucose (UA) Negative (Negative) 09/27/20 11:45 Urine Ketones Negative (Negative) 09/27/20 11:45 Urine Nitrite Negative (Negative) 09/27/20 11:45 Ur Leukocyte Esterase 3+ (Negative) H 09/27/20 11:45 Urine WBC (Auto) >30 /hpf (0-5) H 09/27/20 11:45 Urine RBC (Auto) 0-4 /hpf (0-4) 09/27/20 11:45 U Hyaline Cast (Auto) 1-5 /lpf (0-5) 09/27/20 11:45 U Epithel Cells (Auto) 20-30 /lpf (0-5) H 09/27/20 11:45 Urine Bacteria (Auto) Negative (Negative) 09/27/20 11:45 Blood Type O Positive 09/27/20 11:45 Antibody Screen NEGATIVE 09/27/20 11:45 09/27/20 11:45 Urine Culture - Preliminary Urine,Clean Catch Pin-point growth present, reincubating. Surgeon's office made aware of urine culture findings* Electrocardiogram Date: 09/27/20 NSR at 66bpm. LBBB (no significant change compared to 08/27/2017 per drafter (cad) electronic review. LBBB chronic dating back to at least 2012 per [place] EKG review) Chest X-Ray Date: 09/27/20 FINDINGS: There are a few bibasilar linear densities suggesting scarring or subsegmental atelectasis. Otherwise, no focal lung consolidations to suggest pneumonia. No evidence for pulmonary edema. The heart is normal in size. No pleural effusions. No pneumothorax. Partially visualized lumbar spinal fusion hardware is again noted. Prior cholecystectomy. IMPRESSION: No significant change compared to the prior study. No acute process. Echocardiogram Date: 08/02/18 EF: 40% Left ventricular size is normal with concentric LVH. EF of 40%, consistent with moderate left ventricular systolic dysfunction. Hypokinesis within the septal, anterior, inferior, and apical wall segments. The lateral wall segments show normal contractility. Normal left atrial size. Normal right atrial size and normal right ventricular size with normal right ventricular function. Grade 1 diastolic dysfunction. Normal LA pressure. Mild TN. The PA systolic pressure was unable to be estimated. The pericardium and aorta appear normal. Normal respiratory variation of the IVC. False tendon within the LV.
[2020-09-27 12:15] LABS: Basophils # (auto) 0.02 K/uL (0-0.2); Basophils % (auto) 0.3 %; Eosinophils # (auto) 0.23 K/uL (0-0.5); Eosinophils % (auto) 3.6 %; Hematocrit (blood only) 44.9 % (37-47); Hemoglobin 14.5 g/dL (12.0-16.0); Immature Granulocytes # (auto) 0.03 K/uL (0.00-0.02); Immature Granulocytes % (auto) 0.5 %; Lymphocytes # (auto) 1.75 K/uL (1.2-3.4); Lymphocytes % (auto) 27.3 %; Mean Corpuscular Hemoglobin 29.1 pg (25-34); Mean Corpuscular Hgb Conc 32.3 g/dL (32-36); Mean Platelet Volume 10.6 fL (7.4-10.4); Monocytes # (auto) 0.45 K/uL (0.11-0.59); Neutrophils # (auto) 3.92 K/uL (1.4-6.5); Neutrophils % (auto) 61.3 %; Platelet Count 233 K/uL (130-400); RDW Coefficient of Variation 14.1 % (11.5-14.5); RDW Standard Deviation 45.9 fL (36.4-46.3); Red Blood Count 4.99 M/uL (4.2-5.4)
--- NOTE | 2020-09-27 12:18 | XRay Report ---
XR chest Pre-admission PA/Lat HISTORY: Preop. COMPARISON: 08/21/2018. FINDINGS: There are a few bibasilar linear densities suggesting scarring or subsegmental atelectasis. Otherwise, no focal lung consolidations to suggest pneumonia. No evidence for pulmonary edema. The h eart is normal in size. No pleural effusions. No pneumothorax. Partially visualized lumbar spinal fus ion hardware is again noted. Prior cholecystectomy. IMPRESSION: No significant change compared to the prior study. No acute process. ACT 112: Negative or not required by law. Electronically signed by: Main Manning M.D. 09/27/2020 12:17 PM
[2020-09-27 12:22] LABS: Appearance Urine Cloudy (Clear); Bacteria Urine Automated Negative (Negative); Bilirubin Urine Negative (Negative); Blood Urine Trace (Negative); Color Urine Yellow; Epithelial Cell Urine Auto 20-30 /lpf (0-5); Glucose Urine UA Negative (Negative); Ketones Urine Negative (Negative); Leukocyte Esterase Urine 3+ (Negative); Nitrite Urine Negative (Negative); Protein Urine Negative (Negative); RBC Urine Automated 0-4 /hpf (0-4); Specific Gravity Urine 1.021 (1.000-1.030); Urobilinogen Urine Negative (Negative); WBC Urine Automated >30 /hpf (0-5); pH Urine 5.5 (4.5-7.5)
[2020-09-27 12:24] LABS: Estimated Average Glucose 137 mg/dl; Hemoglobin A1C 6.4 % (4.5-5.6)
[2020-09-27 12:25] LABS: Partial Thromboplastin Time 25.1 Seconds (21.0-31.0); Prothrombin Time 9.7 Seconds (9.0-12.0)
[2020-09-27 14:09] LABS: Albumin Level 3.7 gm/dl (3.4-5.0); BUN Creatinine Ratio 28.2 (10-20); Creatinine Clr Calc Pharmacy 42.2 ml/min; Est GFR (African American) 47.7; Est GFR (Non-African American) 41.2; Potassium 4.6 mmol/L (3.5-5.1)
--- NOTE | 2020-09-28 06:34 | Electrocardiogram Report ---
Test Reason : Blood Pressure : / mmHG Vent. Rate : 066 BPM Atrial Rate : 066 BPM P-R Int : 170 ms QRS Dur : 150 ms QT Int : 472 ms P-R-T Axes : 063 069 267 degrees QTc Int : 494 ms Normal sinus rhythm Left bundle branch block Abnormal ECG When compared with ECG of 27-AUG-2017 15:07, No significant change was found Confirmed by Speedy Amaro ([id number]) on 09/28/2020 6:33:38 AM Referred By: Brayan Zaidi Confirmed By:Speedy Amaro
[~2020-10-26 08:01] MED LIST changes: +BUPIVACAINE 0.25% 30 ML VIAL ONE; +BUPIVACAINE 0.5 % 5 MG/1 ML PF 10ML VIAL ONE; -CEFAZOLIN 2000MG 2,000 MG/15 ML SYR IV SCH; +FAMOTIDINE 20 MG TAB PO SCH; +GABAPENTIN 300 MG CAP PO SCH; -GABAPENTIN 300 MG PO SCH; -LR 15ML/HR IV SCH; +LR 500ML BOLUS, THEN 15ML/HR IV SCH; +METOCLOPRAMIDE HCL 10 MG TABLET PO SCH; +ROPIVACAINE 0.5% HCL/PF 150 MG, BUPIVACAINE 0.75% MPF 20 ML, EPINEPHrine 30MG/30ML (OR ... INSTIL SCH; +TRANEXAMIC ACID 1,000 MG **IV Intra-op IV SCH; +TRANEXAMIC ACID 1,000 MG **IV Pre-op IV SCH; +ceFAZolin 2000MG 2,000 MG/15 ML SYR IV SCH
--- NOTE | 2020-10-26 08:47 | History & Physical Bridge Note ---
Date of Service October 26, 2020 History & Physical Bridge Note I have examined the patient, reviewed the History & Physical and in the interval since the performance of the History & Physical I have noted the following changes of clinical significance: no changes noted
[2020-10-26] MEDS ORDERED: fentaNYL citrate 100 MCG/2 ML VIAL IV PRN (10:01)
[2020-10-26] MEDS ORDERED: ATROPINE SULFATE 0.1 MG/ML 10ML SYR IV PRN (10:01)
[2020-10-26] MEDS ORDERED: ONDANSETRON INJ 2 MG/ML 2 ML VIAL IV PRN ×2 (10:01→15:28)
[2020-10-26] MEDS ORDERED: ePHEDrine sulfate 50 MG/ML AMP IV PRN (10:01)
[2020-10-26] MEDS ORDERED: MIDAZOLAM HCL 1 MG/ML 2ML VIAL ONE (10:08)
[2020-10-26] MEDS ORDERED: PROPOFOL IV EMULSION 10 MG/ML 20 ML VIAL IV ONE (10:08)
[2020-10-26] MEDS ORDERED: LIDOCAINE HCL 2% 2 ML VIAL/AMP(20MG/ML) INFIL ONE (10:08)
[2020-10-26] MEDS ORDERED: fentaNYL citrate 100 MCG/2 ML VIAL ONE ×2 (10:48→12:01)
[2020-10-26] MEDS ORDERED: ORTHO JOINT ANESTHETIC ONE (11:11)
[2020-10-26] MEDS ORDERED: BACITRACIN INJ 50,000 UNIT VIAL ONE (11:11)
[2020-10-26] MEDS ORDERED: ONDANSETRON INJ 2 MG/ML 2 ML VIAL ONE (12:22)
--- NOTE | 2020-10-26 12:34 | Operative Report ---
Post Operative Report Pre & Post Diagnosis Operation Date: 10/26/20 10:35 Pre-Op Diagnosis: Right Knee Osteoarthritis Post-Op Diagnosis: Right Knee Osteoarthritis I identified the patient and participated in the time-out.: Yes Procedure Operation Date: 10/26/20 10:35 Actual Procedures p Right Total Knee Arthroplasty(Right utilizing [employer] melissa 2 patient matched total knee arthroplasty size 5 femur 4 tibia 15 polyethylene 32 oval patella- Brayan Zaidi DO Surgeon Brayan Zaidi DO Intramural Director Kirill PITTMAN Estimated Blood Loss 5 Findings Consistent with Post-Op Diagnosis Patient presents with ongoing planes of pain trouble to the right lower extremity no response to conservative management patient is eburnated [id number] marginal osteophytes subchondral cystic changes moderate to large effusion varus alignment Specimens Bone and cartilage Drains Medium bore Hemovac Anesthesia Type MAC Spinal Regional Complications none Disposition Accompanied Patient To Recovery: No Disposition: Recovery Room Indications Patient presents with severe end-stage DJD right knee no response to conservative management patient fell attempted conservative management clinic physical therapy anti-inflammatories relative rest activity modification corticosteroid injection Visco supplementation above intraoperative findings no time surgery Description of Procedure After proper prepping and draping of the Right lower extremity anterior midline incision was made over the region of the extensor extensor mechanism after meticulous hemostasis was obtained and maintained in subcutaneous tissues a medial parapatellar incision was made The patella was subluxed lateralward the medial lateral gutter were cleaned from any hypertrophic synovitis and scar tissue of the distal femoral block was placed and the distal femoral osteotomy cut was made subsequently the chamfers anterior and posterior osteotomy cuts were made utilizing the 4-in-1 block the tibia was subsequently subluxed anteriorward medial and ateral meniscal remnants were excised in their entirety remnants of the anterior and posterior cruciate ligaments were excised in their entirety excellent exposure of the proximal tibia was obtained the tibial osteotomy guide was placed on the proximal tibial osteotomy cut was made once again the knee was irrigated with copious amounts of sterile saline solution the patella was subsequently everted lateralward thickened scar tissue around the patella was removed the patella was subsequently cut utilizing a freehand technique and was drilled prepared for final preparation and placement of patella socially flexion-extension gaps were checked and the equal and symmetric trials were placed to the appropriate femoral and tibial trials with poly-spacer being placed for equal flexion and extension gaps and full range of motion including extension to 0 and flexion to 140 the trial components after having been taken to recovery range of motion was subsequently removed meticulous hemostasis was obtained and maintained subsequently a knee block injection of joint cocktail including ropivacaine 0.5% 150 mg. Bupivacaine 0.5% epinephrine 1-200,030 mL's toradol 30 mg dexamethasone 4 mg ketamine 10 mg clonidine 100 micrograms normal saline solution 30 mg was infiltrated into the soft tissues of the posterior knee medial lateral gutters and periosteal synovium special attention was paid to protect neurovascular structures at all times subsequently trial components having been removed the knee was irrigated with sterile saline solution. debris was removed the proximal tibia was subsequently prepared and was made ready for the placement of the tibial component tibial component was also cemented and tamped into position the femoral component was subsequently placed and cemented in the position the patellar component was subsequently cemented in position because hemostasis once again obtained and maintained wound having been thoroughly irrigated with debridement and debridement lavage was performed as well as a medial parapatellar incision closed with #1 Vicryl in interrupted fashion subcutaneous was closed with #2 Vicryl skin was closed with skin clips. PA-C was necessary for prepping and drapping as well as wound closure of deep fascia Sub cutaneous tissue and skin and was necessary for the case. A sterile compressive dressing was placed patient was taken to recovery in stable condition of report dictated by Dejuan I attest to the content of the Intraoperative Record and any orders documented therein. Any exceptions are noted below. I attest to the content of the Intraoperative Record and any orders documented therein. Any exceptions are noted below.
--- NOTE | 2020-10-26 13:51 | XRay Report ---
RIGHT KNEE 2 VIEWS History: Right total knee arthroplasty. Degenerative arthritis. Postop. FINDINGS: The patient is status post a right total knee arthroplasty. The hardware is intact. No frac ture or dislocation. Skin lore and surgical drains are in place. IMPRESSION: Right total knee arthroplasty. No evidence for hardware complication. ACT 112: Negative or not required by law. Electronically signed by: Main Manning M.D. 10/26/2020 1:50 PM
--- NOTE | 2020-10-26 14:27 | Anesthesiology Progress Note ---
Date of Service October 26, 2020 Anesthesia Post Procedure Vital Signs Vital Signs: Temp Pulse Pulse Resp BP BP Pulse Ox 10/26/20 14:15 79 15 143/72 H 99 10/26/20 14:00 36.4 C L 81 22 133/65 93 10/26/20 13:45 36.4 C L 82 16 144/78 H 99 10/26/20 13:35 80 16 145/79 H 99 10/26/20 13:25 83 16 137/77 98 10/26/20 13:16 36.0 C L 82 16 153/89 H 98 10/26/20 08:35 36.9 C 60 16 145/79 H 99 Pain Intensity Right Knee: Pain Intensity: 5 Transfer of Care Handoff Completed per policy Notes Mental Status: alert / awake / arousable and participated in evaluation Patient Amnestic to Procedure: Yes Nausea / Vomiting: adequately controlled Pain: adequately controlled Airway Patency, RR, SpO2: stable & adequate BP & HR: stable & adequate Hydration State: stable & adequate Anesthetic Complications: no major complications apparent and Pt Satisfied with anesthetic care
[2020-10-26] MEDS ORDERED: bisacodyL 10 MG SUPP PR PRN (15:28)
[2020-10-26] MEDS ORDERED: MAGNESIUM HYDROXIDE SUSP 30 ML UDC PO PRN (15:28)
[2020-10-26] MEDS ORDERED: HYDROCODONE/ACETAMOPHEN 5/325MG TAB PO PRN (15:28)
[2020-10-26] MEDS ORDERED: METOCLOPRAMIDE HCL INJ 5 MG/ML 2 ML VIAL IV PRN (15:28)
[2020-10-26] MEDS ORDERED: MoRPHine SULFATE 2 MG/ML CARP IV PRN (15:28)
[2020-10-26] MEDS ORDERED: NALOXONE HCL 0.4 MG/1 ML VIAL/CARP IV PRN (15:28)
[2020-10-26] MEDS ORDERED: diphenhydrAMINE Capsule 25 MG CAP PO PRN (15:28)
[2020-10-26] MEDS ORDERED: traMADol HCL 50 MG TABLET PO PRN (15:28)
[2020-10-26] MEDS ORDERED: MoRPHine SULFATE 4 MG/ML 1 ML CARP\\VIAL ONE (15:31)
[2020-10-26] MEDS ORDERED: KETOROLAC 30 MG/ML VIAL ONE (15:59)
[2020-10-26] MEDS ORDERED: PHARMACY GLYCEMIC MGMT CONSULT PRN (16:50)
--- NOTE | 2020-10-26 16:54 | Pharmacy Report ---
Pharmacy Glycemic Short Note 2 - Date of Service October 26, 2020 - Glycemic Short BSG Results (Last 24 hours): 10/26/20 10/26/20 08:30 13:22 POC Glucose 132 H 119 H OUTPATIENT ANTIDIABETIC REGIMEN: * None * HbA1c = 6.4% (09/27/2020) ASSESSMENT: * 80 yo F admitted s/p R TKA today. Pharmacy has been consulted for assistance with inpatient glycemic management. * Pre-op BSG was well controlled at 132 mg/dL. Post-op BSG was well controlled at 119 mg/dL. * Only steroids received perioperatively were in Ortho Joint Mix which has minimal systemic absorption. * Will start with a goal range of 110-140 mg/dL and Novolog based on weight/stress of 1-2 to cover for postoperative stress hyperglycemia. * Depending on BSG trends may be able to discontinue carb ratio in the coming days. PLAN FOR INPATIENT GLYCEMIC CONTROL: * Basal insulin * None * Bolus insulin * NovoLog per scale ACHS or Q6hrs while NPO * Goal Range: Low 110 mg/dL - High 140 mg/dL * Correction Factor: 35 mg/dL/unit * Nutritional / Prandial insulin per carb ratio of 1 unit per 12 grams CHO consumed PLAN FOR DISCHARGE: * HbA1c = 6.4% which is well controlled on diet and exercise only for this patient. Continue with diet and exercise to manage T2DM upon discharge.
[2020-10-26] MEDS ORDERED: GLUCAGON FOR INJ 1 MG VIAL IM PRN (17:00)
[2020-10-26] MEDS ORDERED: DEXTROSE 50% 50 ML SYRINGE IV PRN (17:00)
[2020-10-26] MEDS ORDERED: GLUCOSE 10 TABS/TUBE PO PRN (17:00)
[2020-10-26] MEDS ORDERED: CARBOHYDRATES FOR HYPOGLYCEMIA PO PRN (17:00)
[2020-10-26] MEDS ORDERED: GLUCOSE 40% GEL 15 GM TUBE PO PRN (17:00)
[2020-10-26] MEDS: SODIUM CHLORIDE 0.9% 1000ML 1,000 ML IV SCH (17:43)
[2020-10-26] MEDS: INSULIN ASPART 100 UNITS/ML 3 ML PEN SC SCH ×2 (18:00→21:19)
[2020-10-26] MEDS: KETOROLAC TROMETHAMINE 15 MG/ML VIAL IV SCH ×2 (18:02→23:07)
[2020-10-26] MEDS: ceFAZolin 2000MG 2,000 MG/15 ML SYR IV SCH (19:19)
[2020-10-26] MEDS ORDERED: COUGH DROP (SUGAR FREE) LOZ 24 LOZ/1 BOX BUCCAL ONE (19:43)
[2020-10-26] MEDS: ASPIRIN 81 MG ECTAB PO SCH (20:35)
[2020-10-26] MEDS: DULoxetine HCL 60 MG CAP PO SCH (20:35)
[2020-10-26] MEDS: DOCUSATE SODIUM 100 MG CAP PO SCH (20:35)
[2020-10-26] MEDS ORDERED: clonazePAM 0.5 MG TAB PO SCH (21:00)
[2020-10-26] MEDS ORDERED: ESCITALOPRAM OXALATE 20 MG TAB PO SCH (21:00)
[2020-10-26] MEDS ORDERED: SENNA 8.6 MG TAB PO SCH (21:00)
[2020-10-26] MEDS ORDERED: MAGNESIUM OXIDE 400 MG TAB PO SCH (21:00)
[2020-10-26] MEDS ORDERED: METOPROLOL SUCC 25MG EXT REL TAB PO SCH (21:00)
[2020-10-27] MEDS: ceFAZolin 2000MG 2,000 MG/15 ML SYR IV SCH (03:34)
[2020-10-27] MEDS: SODIUM CHLORIDE 0.9% 1000ML 1,000 ML IV SCH (03:35)
[2020-10-27] MEDS: KETOROLAC TROMETHAMINE 15 MG/ML VIAL IV SCH ×2 (05:33→11:38)
[2020-10-27] MEDS ORDERED: LEVOTHYROXINE SODIUM 75 MCG TABLET PO SCH (06:30)
[2020-10-27 06:38] LABS: Hematocrit (blood only) 37.1 % (37-47); Hemoglobin 12.3 g/dL (12.0-16.0); Mean Corpuscular Hemoglobin 29.4 pg (25-34); Mean Corpuscular Hgb Conc 33.2 g/dL (32-36); Mean Corpuscular Volume 88.8 fL (80-100); Mean Platelet Volume 10.5 fL (7.4-10.4); Platelet Count 187 K/uL (130-400); RDW Coefficient of Variation 14.1 % (11.5-14.5); RDW Standard Deviation 45.6 fL (36.4-46.3); Red Blood Count 4.18 M/uL (4.2-5.4); White Blood Count 7.88 K/uL (4.8-10.8)
[2020-10-27 07:05] LABS: Calcium 7.8 mg/dl (8.5-10.1); Creatinine Clr Calc Pharmacy 45.2 ml/min; Est GFR (African American) 51.2; Est GFR (Non-African American) 44.1; Potassium 4.7 mmol/L (3.5-5.1)
[2020-10-27] MEDS ORDERED: ENALAPRIL MALEATE 10 MG TAB PO SCH (09:00)
[2020-10-27] MEDS ORDERED: MULTIVITAMIN TAB PO SCH (09:00)
[2020-10-27] MEDS ORDERED: FERROUS SULFATE 325 MG TAB PO SCH (09:00)
[2020-10-27] MEDS: INSULIN ASPART 100 UNITS/ML 3 ML PEN SC SCH ×2 (09:20→13:02)
[2020-10-27] MEDS: DULoxetine HCL 60 MG CAP PO SCH (09:20)
[2020-10-27] MEDS: ASPIRIN 81 MG ECTAB PO SCH (09:20)
[2020-10-27] MEDS: DOCUSATE SODIUM 100 MG CAP PO SCH (09:20)
--- NOTE | 2020-10-27 10:08 | Orthopedic Progress Note ---
Date of Service October 27, 2020 Assessment & Plan (1) Arthritis of right knee: Postop day 1 status post right total knee arthroplasty PT/OT protocols. Weightbearing as tolerated. DVT prophylaxis-aspirin p.o. twice daily, SCDs, NICKI mendoza. Pain management as written. DC planning-patient is planning for home health services upon discharge. Admission and Anticipated Discharge Date Admission Date: October 26, 2020 Subjective Postop day 1 Patient is currently sitting up in her bed awake and alert. No complaints this morning. States that she has been ambulating back and forth to the bathroom without difficulty. Pain is controlled. Denies any shortness of breath, chest pain, lightheadedness. Physical Exam Physical Exam: Dressings are clean, dry, and intact. Calves are soft nontender. Neurovascular intact. Toes are mobile. She has good dorsiflexion and plantarflexion of the right foot. She had minimal drainage from her Hemovac from the previous shift. Results & Data ([facility]) Vital Signs (Past 12 Hours) Vital Signs Temp Pulse Resp BP BP Pulse Ox 10/27/20 08:39 36.9 C 55 L 16 130/72 95 10/27/20 07:50 36.7 C 62 16 125/76 97 10/27/20 03:20 36.5 C 70 20 132/80 98 10/26/20 23:38 36.6 C 75 18 135/79 91 Laboratory Results Laboratory Results WBC 7.88 K/uL (4.8-10.8) 10/27/20 06:16 RBC 4.18 M/uL (4.2-5.4) L 10/27/20 06:16 Hgb 12.3 g/dL (12.0-16.0) 10/27/20 06:16 Hct 37.1 % (37-47) 10/27/20 06:16 MCV 88.8 fL (80-100) 10/27/20 06:16 MCH 29.4 pg (25-34) 10/27/20 06:16 MCHC 33.2 g/dL (32-36) 10/27/20 06:16 RDW Std Deviation 45.6 fL (36.4-46.3) 10/27/20 06:16 RDW Coeff of Breezy 14.1 % (11.5-14.5) 10/27/20 06:16 Plt Count 187 K/uL (130-400) 10/27/20 06:16 MPV 10.5 fL (7.4-10.4) H 10/27/20 06:16 Immature Gran % (Auto) 0.5 % 09/27/20 11:45 Neut % (Auto) 61.3 % 09/27/20 11:45 Lymph % (Auto) 27.3 % 09/27/20 11:45 [place] % (Auto) 7.0 % 09/27/20 11:45 Eos % (Auto) 3.6 % 09/27/20 11:45 Baso % (Auto) 0.3 % 09/27/20 11:45 Neut # (Auto) 3.92 K/uL (1.4-6.5) 09/27/20 11:45 Lymph # (Auto) 1.75 K/uL (1.2-3.4) 09/27/20 11:45 [place] # (Auto) 0.45 K/uL (0.11-0.59) 09/27/20 11:45 Eos # (Auto) 0.23 K/uL (0-0.5) 09/27/20 11:45 Baso # (Auto) 0.02 K/uL (0-0.2) 09/27/20 11:45 Immature Gran # (Auto) 0.03 K/uL (0.00-0.02) H 09/27/20 11:45 PT 9.7 Seconds (9.0-12.0) 09/27/20 11:45 INR 1.0 (0.9-1.1) 09/27/20 11:45 APTT 25.1 Seconds (21.0-31.0) 09/27/20 11:45 PTT Ratio 1.0 09/27/20 11:45 Sodium 142 mmol/L (136-145) 10/27/20 06:16 Potassium 4.7 mmol/L (3.5-5.1) 10/27/20 06:16 Chloride 112 mmol/L (98-107) H 10/27/20 06:16 Carbon Dioxide 27 mmol/L (21-32) 10/27/20 06:16 Anion Gap 3.0 (3-11) 10/27/20 06:16 BUN 21 mg/dl (7-18) H 10/27/20 06:16 Creatinine 1.18 mg/dl (0.6-1.2) 10/27/20 06:16 Est Cr Clr Drug Dosing 45.2 ml/min 10/27/20 06:16 Est GFR ( Amer) 51.2 10/27/20 06:16 Est GFR (Non-Af Amer) 44.1 10/27/20 06:16 BUN/Creatinine Ratio 18.0 (10-20) 10/27/20 06:16 Glucose 157 mg/dl (70-99) H 10/27/20 06:16 POC Glucose 139 mg/dl (70-99) H 10/27/20 08:34 Estimat Average Glucose 137 mg/dl 09/27/20 11:45 Hemoglobin A1c 6.4 % (4.5-5.6) H 09/27/20 11:45 Calcium 7.8 mg/dl (8.5-10.1) L 10/27/20 06:16 Albumin 3.7 gm/dl (3.4-5.0) 09/27/20 11:45 Urine Color Yellow 09/27/20 11:45 Urine Appearance Cloudy (Clear) A 09/27/20 11:45 Urine pH 5.5 (4.5-7.5) 09/27/20 11:45 Ur Specific [place] 1.021 (1.000-1.030) 09/27/20 11:45 Urine Protein Negative (Negative) 09/27/20 11:45 Urine Glucose (UA) Negative (Negative) 09/27/20 11:45 Urine Ketones Negative (Negative) 09/27/20 11:45 Urine Blood Trace (Negative) H 09/27/20 11:45 Urine Nitrite Negative (Negative) 09/27/20 11:45 Urine Bilirubin Negative (Negative) 09/27/20 11:45 Urine Urobilinogen Negative (Negative) 09/27/20 11:45 Ur Leukocyte Esterase 3+ (Negative) H 09/27/20 11:45 Urine WBC (Auto) >30 /hpf (0-5) H 09/27/20 11:45 Urine RBC (Auto) 0-4 /hpf (0-4) 09/27/20 11:45 U Hyaline Cast (Auto) 1-5 /lpf (0-5) 09/27/20 11:45 U Epithel Cells (Auto) 20-30 /lpf (0-5) H 09/27/20 11:45 Urine Bacteria (Auto) Negative (Negative) 09/27/20 11:45 Blood Type O Positive 09/27/20 11:45 Antibody Screen NEGATIVE 09/27/20 11:45 Impressions Knee X-Ray 10/26/20 13:19 RIGHT KNEE 2 VIEWS History: Right total knee arthroplasty. Degenerative arthritis. Postop. FINDINGS: The patient is status post a right total knee arthroplasty. The hardware is intact. No fracture or dislocation. Skin lore and surgical drains are in place. IMPRESSION: Right total knee arthroplasty. No evidence for hardware complication. ACT 112: Negative or not required by law. Electronically signed by: Main Manning M.D. 10/26/2020 1:50 PM
--- NOTE | 2020-10-27 18:26 | Discharge Summary ---
Date of Service date of discharge: October 27, 2020 Date of Admission: 10-26-20 Admission HPI Per Admitting Provider Antonina is a 80 year old female who complains of Right knee pain, presents for pre-op evaluation prior to a Right total knee replacement by dr Zaidi at [facility]. She complains of pain, crepitus, decreased range of motion and stiffness in her Right knee. Currently she states that the symptoms are moderate-severe and the pain is described as aching, sharp and throbbing. Her symptoms are aggravated by ascending stairs, daily activities, first steps while awake walking. Prior NSAIDs include Ibuprofen and Mobic. she has been treated with multiple previous visco and cortisone injections in the past without much relief. she also underwent right knee arthroscopy, partial meniscectomy and chondroplasty approximately 10 months ago without any improvement. Principal Diagnosis right knee arthritis Discharge Exam Vital Signs Temp 36.9 C 10/27/20 11:50 Pulse 55 L 10/27/20 11:50 Resp 16 10/27/20 11:50 BP 130/72 10/27/20 11:50 Pulse Ox 95 10/27/20 11:50 Intake & Output 10/26/20 10/27/20 10/27/20 18:59 06:59 18:59 Intake Total 1300 / 2600 1300 / 2600 Output Total 5 / 1005 1000 / 1005 450 / 450 Balance 1295 / 1595 300 / 1595 -450 / -450 Weight 103.532 kg 103.532 kg Intake: IV 400 / 1400 1000 / 1400 Lr 1,000 ml @ 15 mls/hr IV . 200 / 200 Q24H ALONSO Rx#:[id number] Nss 1000ML 1,000 ml @ 100 mls/ 1000 / 1000 hr IV .Q10H ALONSO Rx#:[id number] TRANEXAMIC ACID / 0.7% NACL 1, 200 / 200 000 mg In 100 ml @ 600 mls/hr IV TODAY@0600 ALONSO Rx#:[id number] IV Perioperative 900 / 900 Oral 300 / 300 Output: Urine 550 / 550 450 / 450 Estimated Blood Loss 5 / 5 Drain Output 450 / 450 Right Knee Hemovac 450 / 450 Other: # Unmeasured Voids 1 Weight Measurement Method Standing Scale Constitutional WD/WN, vitals as above Musculoskeletal Right knee: NVDI, calf SNT, negative julien sign. DP palpable, able to wiggle toes/ankle movement without difficulty. DAYNA dressing clean dry and intact. expected post-operative bruising noted. Discharge Data Allergies Allergy/AdvReac Type Severity Reaction Status Date / Time codeine Allergy Intermediate Rash Verified 10/26/20 08:28 hydromorphone AdvReac Severe Hallucinati Verified 10/26/20 08:28 ons [id number] Reductase AdvReac Intermediate Myalgias Verified 10/26/20 08:28 Inhibitor Consultations 10/21/20 14:01 Consult Hospitalist Routine Procedures Performed Operation Date: 10/26/20 10:35 Actual Procedures p Right Total Knee Arthroplasty(Right) - Brayan Zaidi DO Ordered Studies 10/26/20 15:50 US - OR guided needle placemen Urgent Hospital Course (1) Arthritis of right knee: Postop day 1 status post right total knee arthroplasty PT/OT protocols. Weightbearing as tolerated. DVT prophylaxis-aspirin p.o. twice daily, SCDs, NICKI hose. Pain management as written. DC planning-patient is planning for home health services upon discharge. Total Time Total Time Spent Total Time Spent (In Minutes): 20 Discharge Plan Discharge Items Patient Disposition: Home - Home Health Services Reason For Visit: Right Knee Osteoarthritis Discharge Diagnosis: Right total knee replacement Activity: Per Instructions section Lifting: Wait until after follow-up appointment Weightbearing: Right weightbearing Weightbearing Comment: WBAT with walker Non-emergency contact: Surgeon Call non-emergency contact if: you have any medication questions, your temperature is above 101, your wound has increased redness and your wound pain has increased Follow-up/Referrals: Ty Buck MD [Primary Care Provider] - Diet: Carb Consistent or DM2 Addtl Attending Provider Instructions: ACTIVITY RECOMMENDATIONS: SELF CARE INSTRUCTIONS AFTER TOTAL KNEE REPLACEMENT A. You may need to continue a physical therapy program after discharge from the hospital. There are several options available to you. Your doctor will assist you in selecting the best one for you. 1. An out-patient facility 2 to 3 times a week for therapy or home therapy. 2. Continue working on all exercises taught to you in the hospital. Your goals should be to increase bending of your knee to 90 degrees and beyond and to fully straighten your knee. B. You may progress at your own pace from walking with a walker or crutches to a cane; then to no assistive devices. C. Make walking a part of your daily routine. Be up as much as comfortable with rest periods throughout the day. Rest with leg elevation is very important. Use the ice wrap frequently for the first 3-4 weeks. D. There are no restrictions on activities. You may ride in a car, shop, participate in contract lead and all social activities. E. Wear the long elastic stockings (NICKI hose) 20 hours a day for 2 weeks after surgery. They can be removed several times a day for laundering and for a bath. F. You may shower, no tub baths until cleared by your doctor. SPECIAL CARE INSTRUCTIONS: VERY IMPORTANT TO READ AND REVIEW A. There are a few signs you need to watch for after you are home. Call [facility] if you notice any of the followin. Increased severe knee pain. Some pain is expected especially when you exercise. 2. Increased swelling in your leg or knee; pain or swelling of the calf muscle in either lower leg. 3. Any fluid drainage from the incision. 4. Shortness of breath or chest pain. B. Please call [facility] at if you have any concerns or questions about your operation or recovery. The doctor or his nurse will return your call promptly. C. You must take antibiotics before dental work, bladder, bowel or other surgery. Your doctor will provide you with a permanent care to carry describing this precaution. IMPORTANT: * REMEMBER TO TAKE ASPIRIN, 81 MG, TWICE DAILY FOR 4 WEEKS UNLESS OTHERWISE DI RECTED. THIS IS YOUR BLOOD THINNER. * HIGH RISK PATIENTS MAY BE PRESCRIBED A STRONGER BLOOD THINNER. THIS WILL BE PROVIDED AT DISCHARGE. * CALL IF INCREASED PAIN, REDNESS, DRAINAGE OR FEVER GREATER THAT 101. * WEAR NICKI HOSE 20 HOURS PER DAY FOR 2 WEEKS. * DAYNA Dressing- This is a large suction dressing covering your incision. This will help pull any excess drainage from the wound and allow your incision to heal properly. You may shower with this if you can keep the unit outside of the shower. If any bleeding or leakage is noted please call your doctor's offic e. This will remain on your incision for 7 days and then should be removed. This can be done yourself or by the home nursing staff if applicable. The entire unit is disposable once removed. Once removed, keep incision clean and dry. If redness or drainage is noted, please call your surgeon. IF INCISION IS LEAKING THROUGH DRESSING, CALL THE OFFICE . FOLLOW UP VISIT: If appointment is not already scheduled: Please call [facility] to make a follow-up appointment for 2 weeks after your surgery at . Stand-Alone Forms: My [facility] [employer], Smoking Cessation Medications and DC Order Prescriptions: New aspirin 81 mg Tablet,Delayed Release (Dr/Ec) 81 mg PO BID 30 Days Qty: 60 RF: 0 celecoxib [Celebrex] 200 mg Capsule 200 mg PO BID 14 Days Qty: 28 RF: 0 cefadroxil 500 mg capsule 500 mg PO BID Qty: 14 RF: 0 hydrocodone-acetaminophen 5-325 mg tablet 1 - 2 tab PO Q6H MDD 8 tabs PRN (Reason: pain) Qty: 30 RF: 0 polyethylene glycol 3350 [Miralax] 17 gram powder in packet 17 g PO DAILY PRN (Reason: constipation) Qty: 5 RF: 0 Continued clonazepam 1 mg Tablet 1.5 mg PO HS RF: 0 glimepiride 1 mg Tablet 0.5 mg PO HS RF: 0 calcium polycarbophil [Fiber-Tabs] 625 mg Tablet 2 tab PO BID RF: 0 lansoprazole 30 mg Tablet,Disintegrat, Delay Rel 30 mg PO BID RF: 0 metoprolol succinate 25 mg Capsule,Sprinkle,Er 24hr 25 mg PO QPM RF: 0 levothyroxine 75 mcg Tablet 75 mcg PO QAM RF: 0 ferrous sulfate 325 mg (65 mg iron) Tablet 325 mg PO QAM RF: 0 benazepril [Lotensin] 20 mg Tablet 20 mg PO QAM RF: 0 magnesium 200 mg Tablet 400 mg PO QPM RF: 0 escitalopram oxalate [Lexapro] 20 mg Tablet 20 mg PO QPM RF: 0 duloxetine [Cymbalta] 60 mg Capsule,Delayed Release(Dr/Ec) 60 mg PO BID RF: 0 Discontinued aspirin [Aspir-81] 81 mg Tablet,Delayed Release (Dr/Ec) 81 mg PO QPM RF: 0 Discharge Orders: Discharge Order (Routine); Ordered 10/27/20 Ordered By: Apollo Carvajal/Other Patient Handouts: High Blood Sugar (Hyperglycemia), Hypoglycemia (Low Blood Sugar), Managing Type 2 Diabetes, Managing Post-Op Pain at Home ..., Managing Diabetes: The A1C Test Admission Data Admit Date/Time: 10/26/20 13:19 Attending Provider: Brayan Zaidi Admit Provider: Brayan Zaidi Primary Care Provider: Ty Buck Other Providers: Smith Wu Other Interventions: Discharge Summary Assessment (RN) Last Done: 10/27/20 11:50
--- NOTE | 2020-10-27 20:01 | Hospitalist Progress Note ---
Date of Service October 27, 2020 Assessment & Plan (1) Coronary artery disease: Stable and asymptomatic (2) Diabetes mellitus, type II: A1c shows very good control, no need for changes (3) HTN (hypertension): Continue home medications (4) DVT prophylaxis: Per orthopedics Admission and Anticipated Discharge Date Admission Date: October 26, 2020 Subjective feeling pretty good post op. no complaints no problems. no cp no sob. Review of Systems Review of Systems: All systems reviewed & are unremarkable except as noted in HPI & below Physical Exam Physical Exam: In general she is awake and alert pleasant no distress. HEENT normocephalic atraumatic mucous membranes moist. Breathing unlabored no accessory muscle use good effort. Skin shows no rashes no pallor or icterus. Neuro shows no focal deficits. Results & Data Results & Data ([facility]) Vital Signs (Past 12 Hours) Vital Signs Temp Pulse Resp BP Pulse Ox 10/27/20 11:50 98.4 F 55 L 16 130/72 95 10/27/20 08:39 98.4 F 55 L 16 130/72 95 PG Care Time/CCT Total # of Minutes Spent Total Time Spent with Patient: Total time spent is greater than 50% in coordination of care (as documented) at patient's floor/unit and/or counseling patient: Coding Level of Care Code 05894 Subseq Hosp Care Lvl 2 Diagnoses Coronary artery disease I25.10 Diabetes mellitus, type II E11.9 HTN (hypertension) I10 DVT prophylaxis Z29.9
[2020-10-27] MEDS ORDERED: CeleBREX 200 MG CAP PO SCH (21:00)
== END 2020-10-27 13:59 | disposition home health service (06) | DRG 470 ==
LOC: ASU 08:01 → 3E 08:01 → OBSVTOIN 13:19